=== PATIENT | female | born 1965 | race Caucasian/White ===

== ENCOUNTER 2017-11-02 11:44 | Emergency (ER) | payer OTHER ==
[~2017-11-02] VITALS: Ht 165.1 cm; Wt 111.4 kg
[~2017-11-02 11:44] MED LIST: ALBUAER2 INH; ALPR1TAB3 PO; BUPR200T2 PO; CHOL100010 PO; CLB/200 PO; CYAN500T13 PO; FLUO20CA34 PO; GABA-113 PO; HYDR25TA4 PO; LEVO75TA25 PO; MORP1TAB12 PO; MULTTAB58 PO; ONDA4TAB65 PO; OXYC-164 PO
[2017-11-02 11:48] VITALS: TEMP 36.9; Ht 165.1 cm; Wt 111.4 kg
--- NOTE | 2017-11-02 12:36 | DIAGNOSTIC IMAGING REPORT ---
ADDENDUM Lucent and sclerotic focus within the distal tibia which measures 2.2 cm. This likely represents a bone infarct. Electronically signed by: Delfino Lloyd M.D. 11/02/2017 1:35 PM Dictated Date/Time: 11/02/2017 1:35 PM ORIGINAL REPORT L FOOT MIN 3 VIEWS ROUTINE, L TOE(S) MIN 2 VIEWS CLINICAL HISTORY: pain in the foot and toes after kicking pogo stick COMPARISON STUDY: None. FINDINGS: Small plantar heel spur. Soft tissue swelling within the left fifth toe. No fracture or dislocation. The Lisfranc joint is intact. IMPRESSION: Soft tissue swelling within the left fifth toe. No fractures within the left fifth toe or left foot. Electronically signed by: Delfino Lloyd M.D. 11/02/2017 12:34 PM Dictated Date/Time: 11/02/2017 12:32 PM
--- NOTE | 2017-11-02 13:14 | EMERGENCY ROOM VISIT NOTE ---
ED Visit Note First contact with patient: 12:16 CHIEF COMPLAINT: Left foot injury 2 days ago HPI: Patient is a 52 year-old white female who presents emergency department for evaluation of lateral left foot pain. She was walking barefoot 2 days ago when she accidentally kicked one of her son's toys. She complains of pain primarily in the left fifth toe that radiates towards her. She did have some bleeding from the web space which has been controlled. She iced and elevated the foot. She rates her pain a 7/10. No ankle pain. REVIEW OF SYSTEMS: Review of systems as per HPI. All other systems reviewed were negative. At least 6 systems reviewed. PMH: Electronic medical records are reviewed and summarized as above/below. See Problem List. SOCIAL HISTORY: Patient lives at home with her family. PHYSICAL EXAM: Vital Signs: Reviewed Nurse's notes. GENERAL: Well-appearing 52- year-old white female who is awake and alert and in no acute distress. MUSCULOSKELETAL: Examination of the left foot show a circular metal soft tissue swelling and ecchymosis of the fifth toe, extending into the dorsum of the foot slightly. There is no obvious deformity. She has a small skin tear in the web space of the left fourth and fifth toes, but no repairable laceration and no active bleeding. She is slightly tender into the fourth and fifth metatarsal region. EMERGENCY DEPARTMENT COURSE: X-rays of the left foot were obtained and were negative for acute fracture. Patient was placed in a postoperative shoe. Supportive care measures were discussed. Differential diagnosis included fracture, contusion, dislocation, laceration, among others. Medication reconciliation: I attest that I have personally reviewed the patient' s current medication list. Blood pressure screening : Patient was found to have normal blood pressure on screening and does not require follow-up. L FOOT MIN 3 VIEWS ROUTINE, L TOE(S) MIN 2 VIEWS CLINICAL HISTORY: pain in the foot and toes after kicking pogo stick COMPARISON STUDY: None. FINDINGS: Small plantar heel spur. Soft tissue swelling within the left fifth toe. No fracture or dislocation. The Lisfranc joint is intact. IMPRESSION: Soft tissue swelling within the left fifth toe. No fractures within the left fifth toe or left foot. Problem List Medical Problems: (1) COPD (chronic obstructive pulmonary disease) Status: Chronic (2) Hypertension Status: Chronic (3) Hypothyroidism Status: Chronic (4) No significant medical problems Status: Chronic (5) No significant past surgical history Status: Chronic (6) Pain, dental Status: Resolved Current/Historical Medications Scheduled Bupropion Hcl (Wellbutrin Sr), 200 MG PO BID Celecoxib (CeleBREX), 200 MG PO DAILY Cholecalciferol (Vitamin D), 1,000 INTER.UNIT PO DAILY Fluoxetine Hcl (Prozac), 40 MG PO DAILY Gabapentin (Neurontin), 600 MG PO HS Hydrochlorothiazide (Hctz), 25 MG PO DAILY Levothyroxine Sodium (Levoxyl), 75 MCG PO DAILY Morphine Sulfate (Morphine Sulfate Er), 30 MG PO TID Multiple Vitamin (Multivitamin), 1 TAB PO DAILY Scheduled PRN Albuterol (Ventolin Hfa), 2 PUFFS INH Q4H PRN for Wheezing Alprazolam (Xanax), 1 MG PO TID PRN for Anxiety Ondansetron Hcl (Zofran), 4 MG PO Q6H PRN for Nausea Oxycodone Hcl (Oxycodone Hcl), 10 MG PO TID PRN for Pain Allergies Coded Allergies: Cat Dander (Verified Allergy, Unknown, ITCHY, SWELLING, 11/02/17) Dog Dander (Verified Allergy, Unknown, ITCHY, SWELLING, 11/02/17) Dust (Verified Allergy, Unknown, SWELLING, ITCHY, 11/02/17) Molds & Smuts (Verified Allergy, Unknown, ITCHY, SWELLING, 11/02/17) NO KNOWN DRUG ALLERGIES (Verified Allergy, Unknown, , 11/02/17) Vital Signs Date Time Temp Pulse Resp B/P (MAP) Pulse Ox O2 Delivery O2 Flow Rate FiO2 11/02/17 13:25 74 18 131/79 97 11/02/17 11:48 36.9 76 20 136/84 96 Room Air Departure Information Impression Primary Impression: Contusion of left foot Referrals No Doctor, Assigned (PCP) Patient Instructions My [facility] Additional Instructions Ibuprofen(Motrin, Advil) may be used for fever or pain. Use 600mg every six hours as needed. Take with food. Avoid using more than 2400mg in a 24 hour period. Do not use 2400mg per day for more than three consecutive days without physician direction. Prolonged inappropriate use can lead to stomach upset or ulcers. This medication can be taken if you need to drive, work, or perform activities which may be dangerous when taking narcotic pain medication. (AND/OR) Acetaminophen(Tylenol) may be used for fever or pain. Use 1000mg every six hours as needed. Avoid using more than 3000mg in a 24 hour period. This medication can be taken if you need to drive, work, or perform activities which may be dangerous when taking narcotic pain medication. Ice compresses for 20 minutes at a time four times daily for 2-3 days. Use the postoperative shoe as instructed. Rest and elevate your injury. May resume normal activity as your symptoms allow. Continue current medications. Return to the ER immediately for any numbness, tingling, severe pain, extreme swelling in the extremity or as needed. Followup with your family doctor or orthopedic surgery if no improvement in 5-7 days.
[2017-11-02 13:25] VITALS: BP 131/79; PULSE 74; O2SAT 97
== END 2017-11-02 13:25 | disposition home or self-care (01) ==
LOC: C.EDB 11:45 → C.EDD 13:25
DX: S90.32XA Contusion of left foot, initial encounter (principal); W22.8XXA Striking against or struck by other objects, initial encounter; S91.312A Laceration without foreign body, left foot, initial encounter; J44.9 Chronic obstructive pulmonary disease, unspecified; I10 Essential (primary) hypertension; E03.9 Hypothyroidism, unspecified

== ENCOUNTER 2017-12-31 08:33 | Observation (INO) | payer OTHER ==
[~2017-12-31] VITALS: Ht 165.1 cm; Wt 101.0 kg
[~2017-12-31 08:33] MED LIST changes: -ALPR1TAB3 PO; -BUPR200T2 PO; -CLB/200 PO; -CYAN500T13 PO; -FLUO20CA34 PO; -GABA-113 PO; -HYDR25TA4 PO; -MULTTAB58 PO; -ONDA4TAB65 PO
[2017-12-31] MEDS ORDERED: ASPIRIN 81 MG CHEW PO STA (08:56)
[2017-12-31] MEDS ORDERED: SODIUM CHLORIDE 0.9% 1000ML 1,000 ML IV STA (08:56)
[2017-12-31] MEDS ORDERED: SYN75 PO (09:04)
[2017-12-31] MEDS ORDERED: CHOL100010 PO (09:04)
[2017-12-31] MEDS ORDERED: VNTHFA/IN INH (09:04)
[2017-12-31] MEDS ORDERED: BLAC540C3 (09:04)
[2017-12-31] MEDS ORDERED: MORP-86 PO (09:04)
[2017-12-31] MEDS ORDERED: OXYC15TA89 PO (09:04)
[2017-12-31 09:07] LABS: BASO % 0.5 %; BASO ABS # 0.03 K/uL (0-0.2); EOS % 1.6 %; EOS ABS # 0.09 K/uL (0-0.5); HEMATOCRIT 41.9 % (37-47); HEMOGLOBIN 13.8 g/dL (12.0-16.0); LYMPH ABS # 1.68 K/uL (1.2-3.4); MEAN CELL VOLUME 90.3 fL (80-100); MEAN CORPUSCULAR HEMOGLOBIN 29.7 pg (25-34); MEAN CORPUSCULAR HGB CONC 32.9 g/dl (32-36); MEAN PLATELET VOLUME 8.9 fL (7.4-10.4); MONO % 9.3 %; MONO ABS # 0.54 K/uL (0.11-0.59); NEUT % 59.6 %; NEUT ABS # 3.45 K/uL (1.4-6.5); PLATELET COUNT 194 K/uL (130-400); RED CELL DISTRIBUTION WIDTH CV 13.4 % (11.5-14.5); RED CELL DISTRIBUTION WIDTH SD 44.1 fL (36.4-46.3); WHITE BLOOD COUNT 5.79 K/uL (4.8-10.8)
[2017-12-31 09:17] LABS: ALBUMIN 3.8 gm/dl (3.4-5.0); CALCIUM 9.3 mg/dl (8.5-10.1); CREATININE 0.93 mg/dl (0.60-1.20); POTASSIUM 3.8 mmol/L (3.5-5.1)
[2017-12-31 09:20] LABS: TOTAL PROTEIN 7.1 gm/dl (6.4-8.2)
[2017-12-31 09:25] LABS: INR 0.9 (0.9-1.1); PTT PATIENT 25.8 SECONDS (21.0-31.0)
--- NOTE | 2017-12-31 09:32 | DIAGNOSTIC IMAGING REPORT ---
SINGLE VIEW CHEST CLINICAL HISTORY: Atypical chest pain. FINDINGS: An AP, portable, upright chest radiograph is compared to study dated 03/21/2015 and correlated with chest CT dated 06/04/2008. The examination is degraded by portable technique, large body habitus, and patient rotation. The heart is top normal for projection. The pulmonary vasculature is noncongested. There is bibasilar atelectasis. No airspace consolidation or large pleural effusion is identified. No pneumothorax is seen. The skeletal structures are osteopenic. The bony thorax is grossly intact. IMPRESSION: No acute cardiopulmonary abnormality. Electronically signed by: Yogi Treadwell M.D. 12/31/2017 9:31 AM Dictated Date/Time: 12/31/2017 9:30 AM
[2017-12-31] MEDS: NITROGLYCERIN 0.4 MG SL PER TAB CHARGE SL PRN ×2 (09:33→13:05)
[2017-12-31 13:18] VITALS: O2SAT 97; Ht 165.1 cm; Wt 101.0 kg
[2017-12-31] MEDS ORDERED: ACETAMINOPHEN 500 MG TAB PO STA (13:26)
[2017-12-31] MEDS ORDERED: ACETAMINOPHEN 500 MG TAB PO ONE (13:29)
[2017-12-31] MEDS ORDERED: ONDANSETRON INJ 2 MG/ML 2 ML VIAL IV PRN (13:30)
[2017-12-31] MEDS ORDERED: ALPRAZOLAM 0.5 MG TAB PO PRN (13:30)
[2017-12-31] MEDS ORDERED: NITROGLYCERIN 0.4 MG SL PER TAB CHARGE SL PRN (13:30)
[2017-12-31] MEDS ORDERED: OXYCODONE HCL 15 MG TABCR (OXYCONTIN) PO PRN (13:30)
--- NOTE | 2017-12-31 13:39 | History and Physical ---
History & Physical Date & Time of Service: Dec 31, 2017 at 13:26 Chief Complaint: Chest Pain Primary Care Physician: Judith Becker PA-C History of Present Illness Source: patient She is a 52-year-old white female with significant hypothyroidism chronic back pain esophageal reflux apparently woke up from sleep at around 5 AM with chest pain. The pain was there for about half an hour and it was not associated with any other significant symptoms. She tried to take some Tums with some improvement and later on he decided to come to the emergency room on the way to the emergency room she got another attack of chest pain, this time left side and also to the left shoulder no shortness of breath associated with it. She also had to have another episode of pain at the emergency room that was controlled with sublingual nitro. She also recently finished a course of prednisone for possible exacerbation of asthma. Her initial blood work including troponin and EKG were unremarkable and she was about to go home. She suffered another attack of chest pain and during that time she was advised to stay in the hospital. Cardiology consultation was asked for for a probable stress test down the line. 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 (14) Sciatica of left side Social History Smoking Status: Former Smoker Marital Status: single Occupational Status: employed Immunizations History of Tetanus Vaccine?: Yes History of Pneumococcal: 2002 History of Hepatitis B Vaccine: Unknown Allergies Coded Allergies: Cat Dander (Verified Allergy, Unknown, ITCHY, SWELLING, 12/31/17) Dog Dander (Verified Allergy, Unknown, ITCHY, SWELLING, 12/31/17) Dust (Verified Allergy, Unknown, SWELLING, ITCHY, 12/31/17) Molds & Smuts (Verified Allergy, Unknown, ITCHY, SWELLING, 12/31/17) NO KNOWN DRUG ALLERGIES (Verified Allergy, Unknown, , 11/02/17) Home Medications Scheduled Albuterol Hfa (Ventolin Hfa), 2-4 PUFFS INH Q6H Bupropion Hcl (Wellbutrin Sr), 200 MG PO BID Celecoxib (CeleBREX), 200 MG PO DAILY Cholecalciferol (Vitamin D), 1,000 UNITS PO DAILY Fluoxetine Hcl (Prozac), 40 MG PO DAILY Gabapentin (Neurontin), 600 MG PO HS Hydrochlorothiazide (Hctz), 25 MG PO DAILY Levothyroxine Sodium (Synthroid), 75 MCG PO DAILY Morphine Sulfate (Morphine Sulfate Cr), 15 MG PO BID Multiple Vitamin (Multivitamin), 1 TAB PO DAILY Scheduled PRN Alprazolam (Xanax), 1 MG PO TID PRN for Anxiety Ondansetron Hcl (Zofran), 4 MG PO Q6H PRN for Nausea Oxycodone Hcl (Oxycontin), 15 MG PO QID PRN for Pain Miscellaneous Medications Black Cohosh (Cimicifuga Racem (Black Cohosh) Review of Systems Cardiovascular: + chest pain Abdomen: + nausea Physical Exam Vital Signs Date Time Temp Pulse Resp B/P (MAP) Pulse Ox O2 Delivery O2 Flow Rate FiO2 12/31/17 13:20 75 12/31/17 13:18 97 Room Air 12/31/17 13:08 86 18 103/77 97 Room Air 12/31/17 12:45 74 18 124/82 98 Room Air 12/31/17 11:33 82 18 115/64 97 Room Air 12/31/17 11:11 70 18 134/67 98 Room Air 12/31/17 09:35 84 18 117/70 95 Room Air 12/31/17 08:43 92 12/31/17 08:42 98 Room Air 12/31/17 08:34 37.0 89 17 142/83 96 Room Air General Appearance: + mild distress Head: normocephalic Eyes: normal inspection, PERRL ENT: normal ENT inspection Neck: supple Respiratory/Chest: chest non-tender, lungs clear, no respiratory distress, + wheezing (Minimal) Cardiovascular: regular rate, rhythm Abdomen/GI: normal bowel sounds Back: normal inspection Extremities/Musculoskelatal: + pedal edema (Chronic) Neurologic/Psych: no motor/sensory deficits, alert, normal mood/affect Skin: normal color Lymphatic: no adenopathy Diagnostics Laboratory Results Results Past 24 Hours Test 12/31/17 08:44 12/31/17 10:41 12/31/17 11:28 Range/Units White Blood Count 5.79 4.8-10.8 K/uL Red Blood Count 4.64 4.2-5.4 M/uL Hemoglobin 13.8 12.0-16.0 g/dL Hematocrit 41.9 37-47 % Mean Corpuscular Volume 90.3 80-100 fL Mean Corpuscular Hemoglobin 29.7 25-34 pg Mean Corpuscular Hemoglobin Concent 32.9 32-36 g/dl Platelet Count 194 130-400 K/uL Mean Platelet Volume 8.9 7.4-10.4 fL Neutrophils (%) (Auto) 59.6 % Lymphocytes (%) (Auto) 29.0 % Monocytes (%) (Auto) 9.3 % Eosinophils (%) (Auto) 1.6 % Basophils (%) (Auto) 0.5 % Neutrophils # (Auto) 3.45 1.4-6.5 K/uL Lymphocytes # (Auto) 1.68 1.2-3.4 K/uL Monocytes # (Auto) 0.54 0.11-0.59 K/uL Eosinophils # (Auto) 0.09 0-0.5 K/uL Basophils # (Auto) 0.03 0-0.2 K/uL RDW Standard Deviation 44.1 36.4-46.3 fL RDW Coefficient of Variation 13.4 11.5-14.5 % Immature Granulocyte % (Auto) 0.0 % Immature Granulocyte # (Auto) 0.00 0.00-0.02 K/uL Prothrombin Time 9.6 9.0-12.0 SECONDS Prothromb Time International Ratio 0.9 0.9-1.1 Activated Partial Thromboplast Time 25.8 21.0-31.0 SECONDS Partial Thromboplastin Ratio 1.0 Sodium Level 139 136-145 mmol/L Potassium Level 3.8 3.5-5.1 mmol/L Chloride Level 103 98-107 mmol/L Carbon Dioxide Level 30 21-32 mmol/L Anion Gap 6.0 3-11 mmol/L Blood Urea Nitrogen 20 7-18 mg/dl Creatinine 0.93 0.60-1.20 mg/dl Est Creatinine Clear Calc Drug Dose 88.3 ml/min Estimated GFR () 81.9 Estimated GFR (Non- 70.7 BUN/Creatinine Ratio 21.0 10-20 Random Glucose 80 70-99 mg/dl Calcium Level 9.3 8.5-10.1 mg/dl Total Bilirubin 0.4 0.2-1 mg/dl Direct Bilirubin 0.1 0-0.2 mg/dl Aspartate Amino Transf (AST/SGOT) 16 15-37 U/L Alanine Aminotransferase (ALT/SGPT) 20 12-78 U/L Alkaline Phosphatase 112 45-117 U/L Total Protein 7.1 6.4-8.2 gm/dl Albumin 3.8 3.4-5.0 gm/dl Lipase 86 73-393 U/L Bedside Troponin I < 0.030 < 0.030 0-0.045 ng/ml CXR normal Normal EKG Impression Assessment and Plan Chest pain Recurrent episodes since 5 AM Pain related to ER with them sublingual nitro Initial EKG and troponin negative Patient will be admitted to telemetry unit Dobutamine stress echo tomorrow morning Asthma Seems to be well controlled Continue her current home medications Hypothyroidism Continue with replacement Chronic back pain Has been in the care of pain therapist We will continue her usual home medications Obstructive sleep apnea No acute issue with this Esophageal reflux continue PPI DVT prophylaxis with heparin CODE STATUS-she will be full code In my clinical assessment the beneficiary meets criteria as per CMS for 2 minutes in the hospital Advanced Directives Existing Living Will: No Existing Power of Lumber Scaler: No Resuscitation Status VTE Prophylaxis Will order VTE Prophylaxis: Yes
[2017-12-31] MEDS ORDERED: ALPR1TAB3 PO (14:25)
[2017-12-31 14:40] VITALS: BP 144/84; PULSE 71; TEMP 37.1; O2SAT 97
[2017-12-31] MEDS ORDERED: IV FLUIDS COMPLETED PRN (15:30)
[2017-12-31] MEDS: NSS + 20MEQ KCL 1000ML 1,000 ML IV SCH (15:35)
[2017-12-31 16:00] VITALS: O2SAT 97
[2017-12-31] MEDS: OXYCODONE HCL IR 5 MG TAB (IMMEDIATE RELEASE) PO PRN ×2 (16:06→20:40)
[2017-12-31] MEDS: ALBUTEROL HFA 8 GM INHALER INH SCH ×2 (17:08→20:44)
[2017-12-31] MEDS: HEPARIN SOD 5000 UNIT/0.5 ML CARP SQ SCH ×2 (17:09→20:43)
[2017-12-31] MEDS ORDERED: MULTTAB58 PO (17:12)
[2017-12-31] MEDS ORDERED: BUPR200T2 PO (17:12)
[2017-12-31] MEDS ORDERED: FLUO20CA34 PO (17:12)
[2017-12-31] MEDS ORDERED: CLB/200 PO (17:12)
[2017-12-31] MEDS ORDERED: MoRPHine SULFATE CR 15 MG TAB (MS CONTIN) PO ONE (17:26)
--- NOTE | 2017-12-31 17:41 | EMERGENCY ROOM VISIT NOTE ---
ED Visit Note First contact with patient: 08:40 Chief Complaint: Chest pain. History of Present Illness: Ms. Green is a 52 year-old white female who ambulates into the ED complaining of left-sided chest pain. Historically patient reports a significant history of COPD and hypertension. She denies any personal heart disease. She does report that her maternal grandfather from heart attack at age 90, but her parents and siblings have no heart disease. Patient reports last evening prior to bed she reports she had an episode of diaphoresis and nausea without vomiting that lasted a short time and then self resolved. She was able to sleep all night. This morning approximately 4 hours ago she was awoken from sleep with an acute onset of left-sided chest pain. Since that time her pain has been constant. She describes her discomfort as an achy and pressure-like sensation. On its initial presentation she rates her discomfort 8/10 and currently it is 4/10. She reports she took some Tums and had mild relief of her discomfort. Associated with her discomfort she reports she was feeling short of breath; she reports using an inhaler and had mild relief of her shortness of breath. She has not identified any aggravating factors related to the her discomfort. She denies fevers, chills, sweats, skin eruptions, skin color changes, previous similar discomforts, recent upper respiratory tract symptoms, cough, wheezing, hemoptysis, palpitations, orthopnea, dependent edema, previous clots, claudication, cramping, return of nausea, vomiting, back/flank pain. Review of Systems: As noted above in history of present illness. All body systems were reviewed and found to be negative as noted above. Past Medical History: As previously noted, hypothyroidism Current Medications: Medications Dose Route/Sig Max Daily Dose Days Date Category Black Cohosh (Black Cohosh (Cimicifuga Racem) 540 Mg Cap 12/31/17 Reported Oxycontin (Oxycodone Hcl) 15 Mg Tab 15 Mg PO QID PRN 12/31/17 Reported Morphine Sulfate Cr (Morphine Sulfate) 15 Mg Tab 15 Mg PO BID 12/31/17 Reported Synthroid (Levothyroxine Sodium) 75 Mcg Tab 75 Mcg PO DAILY 12/31/17 Reported Vitamin D (Cholecalciferol) 1,000 Unit Tab 1,000 Units PO DAILY 12/31/17 Reported Ventolin Hfa (Albuterol) 200 Puffs/57943 Mcg Aers 2-4 Puffs INH Q6H 12/31/17 Reported Neurontin (Gabapentin) 300 Mg Cap 600 Mg PO HS 10/05/15 Reported Zofran (Ondansetron Hcl) 4 Mg Tab 4 Mg PO Q6H PRN 10/05/15 Reported Hctz (Hydrochlorothiazide) 25 Mg Tab 25 Mg PO DAILY 10/05/15 Reported Xanax (Alprazolam) 1 Mg Tab 1 Mg PO TID PRN 07/25/14 Reported Multivitamin (Multiple Vitamin) 1 Tab Tab 1 Tab PO DAILY 02/22/12 Reported Wellbutrin Sr (Bupropion Hcl) 200 Mg Tab 200 Mg PO BID 02/22/12 Reported CeleBREX (Celecoxib) 200 Mg Cap 200 Mg PO DAILY 02/22/12 Reported Prozac (Fluoxetine Hcl) 20 Mg Cap 40 Mg PO DAILY 02/22/12 Reported Allergies to Medications: Patient denies. Social History: Patient is currently employed; she feels safe in her home environment; she admits to being a former smoker. Physical Examination: Vital Signs: Date Time Temp Pulse Resp B/P (MAP) Pulse Ox O2 Delivery O2 Flow Rate FiO2 12/31/17 13:20 75 12/31/17 13:18 97 Room Air 12/31/17 13:08 86 18 103/77 97 Room Air 12/31/17 13:07 103/77 12/31/17 13:01 133/92 12/31/17 12:45 74 18 124/82 98 Room Air 12/31/17 12:33 73 21 97 12/31/17 12:31 124/82 12/31/17 12:01 138/93 12/31/17 11:33 68 10 99 12/31/17 11:33 82 18 115/64 97 Room Air 12/31/17 11:30 115/64 12/31/17 11:11 70 18 134/67 98 Room Air 12/31/17 11:11 134/67 12/31/17 09:35 84 18 117/70 95 Room Air 12/31/17 09:34 117/70 12/31/17 09:33 79 22 94 12/31/17 08:43 92 12/31/17 08:42 98 Room Air 12/31/17 08:34 37.0 89 17 142/83 96 Room Air GENERAL: 52-year-old female in mild distress due to pain, nontoxic-appearing, afebrile and hemodynamically stable. NEUROLOGICAL: Awake, alert and oriented to person, place and time. Answering questions appropriately and following commands. Normal gait. Good hand eye coordination. SKIN: Warm, dry and pink. No soft tissue eruptions or trauma noted. HEENT: Atraumatic and normocephalic. PERRLA. Sclera white and conjunctiva pink. Oral cavity moist and pink. Pharynx is nonerythematous or edematous. Speech normal. No lymphadenopathy. Trachea midline. No jugular venous distention. No carotid bruits. BACK: No tenderness over the bony spine. No CVA tenderness. THORAX: Lungs sounds are clear to auscultation and equal bilaterally with symmetrical chest wall. No wheezing, rales or rhonchi. No crepitus, tenderness , subcutaneous air or deformities noted. HEART: Regular rate and rhythm. No gallops, rubs or murmurs are appreciated. No lifts, heaves or thrills. PMI is not displaced. ABDOMEN: Obese, soft and nontender. Positive bowel sounds in all quadrants. No guarding, rigidity or organomegaly. EXTREMITIES: Moves all extremities well on command and with purpose. All distal neurovascular statuses are intact and equal bilaterally. Mild dependent edema. No calf tenderness or cords. ED Course: Patient is assessed as noted above. Laboratory Testing: Test 12/31/17 08:44 12/31/17 10:41 12/31/17 11:28 Range/Units White Blood Count 5.79 4.8-10.8 K/uL Red Blood Count 4.64 4.2-5.4 M/uL Hemoglobin 13.8 12.0-16.0 g/dL Hematocrit 41.9 37-47 % Mean Corpuscular Volume 90.3 80-100 fL Mean Corpuscular Hemoglobin 29.7 25-34 pg Mean Corpuscular Hemoglobin Concent 32.9 32-36 g/dl Platelet Count 194 130-400 K/uL Mean Platelet Volume 8.9 7.4-10.4 fL Neutrophils (%) (Auto) 59.6 % Lymphocytes (%) (Auto) 29.0 % Monocytes (%) (Auto) 9.3 % Eosinophils (%) (Auto) 1.6 % Basophils (%) (Auto) 0.5 % Neutrophils # (Auto) 3.45 1.4-6.5 K/uL Lymphocytes # (Auto) 1.68 1.2-3.4 K/uL Monocytes # (Auto) 0.54 0.11-0.59 K/uL Eosinophils # (Auto) 0.09 0-0.5 K/uL Basophils # (Auto) 0.03 0-0.2 K/uL RDW Standard Deviation 44.1 36.4-46.3 fL RDW Coefficient of Variation 13.4 11.5-14.5 % Immature Granulocyte % (Auto) 0.0 % Immature Granulocyte # (Auto) 0.00 0.00-0.02 K/uL Prothrombin Time 9.6 9.0-12.0 SECONDS Prothromb Time International Ratio 0.9 0.9-1.1 Activated Partial Thromboplast Time 25.8 21.0-31.0 SECONDS Partial Thromboplastin Ratio 1.0 Sodium Level 139 136-145 mmol/L Potassium Level 3.8 3.5-5.1 mmol/L Chloride Level 103 98-107 mmol/L Carbon Dioxide Level 30 21-32 mmol/L Anion Gap 6.0 3-11 mmol/L Blood Urea Nitrogen 20 7-18 mg/dl Creatinine 0.93 0.60-1.20 mg/dl Est Creatinine Clear Calc Drug Dose 88.3 ml/min Estimated GFR () 81.9 Estimated GFR (Non- 70.7 BUN/Creatinine Ratio 21.0 10-20 Random Glucose 80 70-99 mg/dl Calcium Level 9.3 8.5-10.1 mg/dl Total Bilirubin 0.4 0.2-1 mg/dl Direct Bilirubin 0.1 0-0.2 mg/dl Aspartate Amino Transf (AST/SGOT) 16 15-37 U/L Alanine Aminotransferase (ALT/SGPT) 20 12-78 U/L Alkaline Phosphatase 112 45-117 U/L Total Protein 7.1 6.4-8.2 gm/dl Albumin 3.8 3.4-5.0 gm/dl Lipase 86 73-393 U/L Hepatitis C Antibody Screen PRELIM POS NEG Bedside Troponin I < 0.030 < 0.030 0-0.045 ng/ml Chest X-Rays: Were read by myself and the radiologist showing no acute infiltrates, effusions or pneumothorax. Normal heart silhouette and bony anatomy. EKG: #1 0841 was read by myself and shows normal sinus rhythm with a ventricular rate of 81 bpm. Normal axis, intervals and complexes. No acute ST changes indicating ischemia, injury or infarction. Compared to previous and no acute changes were noted. EKG: #2 1115 was read by myself and shows normal sinus rhythm with a ventricular rate of 69 bpm. Normal axis, intervals and complexes. No acute ST changes indicating ischemia, injury or infarction. Compared to previous and no acute changes were noted. Patient was hydrated with normal saline and initially she was given 324 mg of aspirin and 1 0.4 mg sublingual nitroglycerin tablet; on reassessment this resolved her discomfort. Patient was reassessed multiple times during her stay in the emergency department. Second troponin and EKG were normal. My plan was to discharge the patient to home but when I reassessed her she reports she had return of her chest discomfort. This was similar to previous. She was given a second sublingual nitroglycerin without relief of her discomfort. Patient's case was reviewed with Dr. Brandt; we agreed on diagnostic approach , treatment, disposition and plan. Patient's case was consulted with Dr. Durant, [facility] cardiology; he recommended admission and possible stress testing. Patient's case was consulted with case management and [facility]. Patient was educated about today's findings. Clinical Impression: Acute left-sided chest pain. Decision-Making: Initially my differential diagnosis I considered acute coronary syndrome, thoracic aneurysm, pneumothorax, pneumonia, pulmonary embolism, musculoskeletal disorder and other causes. Disposition and Plan: [facility] please see their notes and orders for final disposition and plan.
[2017-12-31 18:53] VITALS: BP 108/74; PULSE 74; TEMP 36.8; O2SAT 93
[2017-12-31] MEDS ORDERED: ONDA4TAB65 PO (18:58)
[2017-12-31] MEDS ORDERED: HYDR25TA4 PO (18:58)
[2017-12-31] MEDS ORDERED: GABA-113 PO (18:58)
[2017-12-31 20:00] VITALS: O2SAT 97
[2017-12-31] MEDS: BuPROPion SR 100 MG TABCR PO SCH (20:39)
[2017-12-31] MEDS: GABAPENTIN 600 MG TAB PO SCH (20:39)
[2017-12-31] MEDS: ALPRAZOLAM 0.5 MG TAB PO SCH (20:40)
[2017-12-31] MEDS ORDERED: MoRPHine SULFATE CR 15 MG TAB (MS CONTIN) PO SCH (21:00)
[2017-12-31 23:42] VITALS: BP 113/75; PULSE 82; TEMP 36.7; O2SAT 94
[2018-01-01] VITALS (11 sets, daily range): BP systolic 92–117; BP diastolic 60–80; PULSE 66–87; TEMP 36.4–36.8; O2SAT 95–98
[2018-01-01] MEDS: NSS + 20MEQ KCL 1000ML 1,000 ML IV SCH ×2 (04:42→17:54)
[2018-01-01] MEDS: HEPARIN SOD 5000 UNIT/0.5 ML CARP SQ SCH ×3 (05:55→21:46)
[2018-01-01] MEDS: LEVOTHYROXINE 75 MCG TAB PO SCH (05:57)
[2018-01-01] MEDS: ALBUTEROL HFA 8 GM INHALER INH SCH ×3 (05:58→17:55)
[2018-01-01] MEDS: MULTIVITAMIN TAB PO SCH (07:50)
[2018-01-01] MEDS: CHOLECALCIFEROL 1000 INTER.UNIT TAB PO SCH (07:51)
[2018-01-01] MEDS: BuPROPion SR 100 MG TABCR PO SCH ×2 (07:51→20:30)
[2018-01-01] MEDS: FLUOXETINE HCL 20 MG CAP PO SCH (07:51)
[2018-01-01 08:21] LABS: CHOLESTEROL 197 mg/dl (0-200); LDL CHOLESTEROL CALCULATED 108 mg/dl
[2018-01-01] MEDS: ALPRAZOLAM 0.5 MG TAB PO SCH ×3 (09:00→20:25)
[2018-01-01] MEDS: MoRPHine SULFATE CR 15 MG TAB (MS CONTIN) PO SCH ×2 (09:02→20:30)
[2018-01-01] MEDS: OXYCODONE HCL IR 5 MG TAB (IMMEDIATE RELEASE) PO PRN ×4 (09:05→21:47)
[2018-01-01] MEDS ORDERED: METOPROLOL TARTRATE 1 MG/ML VIAL ONE ×3 (09:48→10:19)
[2018-01-01] MEDS ORDERED: DOBUTamine HCL 12.5 MG/ML 20 ML VIAL ONE (09:48)
[2018-01-01] MEDS ORDERED: ATROPINE SULFATE 0.1 MG/ML 5ML SYR ONE ×2 (09:49→09:50)
--- NOTE | 2018-01-01 11:10 | DOBUTAMINE ECHO ---
*NOTICE TO RECEIVING [employer] [employer] This information is strictly Confidential and protected under [place] law. [place] law prohibits you from making any further disclosure of this information unless further disclosure is expressly permitted by the written consent of the person to whom it pertains or is authorized by law. A general authorization for the release of medical or other information is not sufficient for this purpose. Hospital accepts no responsibility if the information is made available to any other person, INCLUDING THE PATIENT. Interpretation Summary * Name: GERRY SERRANO Study Date: 01/01/2018 08:35 AM BP: 132/66 mmHg * Patient Location: C.2T\S\S235\S\1 HR: 68 * : 1965 (M/d/yyyy) Gender: Female Height: 65 in * Age: 52 yrs Ethnicity: CA Weight: 247 lb * Ordering Physician: Kaye Galvez * Referring Physician: Self, Referred * Performed By: Summer Ny RDCS * * Reason For Study: CHEST PAIN * BSA: 2.2 m2 * STRESS STUDY: Normal pharmacologic stress echocardiogram. No echocardiographic or ECG evidence of myocardial ischemia having achieved heart rate adequate for diagnostic purposes. * -- Conclusions -- * The left ventricle is normal in size. * Left ventricular systolic function is normal. * Ejection Fraction = 60-65%. Procedure Details * DOBUTAMINE ECHO, CPT#96903 Left Ventricle * The left ventricle is normal in size. * There is normal left ventricular wall thickness. * Ejection Fraction = 60-65%. * Left ventricular systolic function is normal. Right Ventricle * The right ventricle is normal size. * The right ventricular systolic function is normal. Atria * The left atrial size is normal. * Right atrial size is normal. * No ASD detected; PFO is not assessed. Mitral Valve * The mitral valve is normal in structure and function. Tricuspid Valve * The tricuspid valve is not well visualized, but is grossly normal. * There is trace tricuspid regurgitation. Aortic Valve * The aortic valve is normal in structure and function. Pulmonic Valve * The pulmonic valve is not well visualized. Great Vessels * The aortic root and proximal ascending aorta are normal sized. Pericardium * There is no pericardial effusion. Stress Parameters * The stress portion of this study was personally supervised by the undersigned interpreting physician. * Rest heart rate was '68' BPM. * Rest blood pressure was '132/66' * Maximum heart rate achieved was 155 bpm. * Maximum heart rate was 92 % of maximum age-predicted heart rate. * Maximum blood pressure was '219/52' * Maximum Dobutamine infusion rate was '50' mcg/kg/min. * A total of .75 mg of intravenous Atropine was used to supplement Dobutamine for heart rate response. * Dobutamine infusion was terminated due to achieving target heart rate * A total of 10 mg of IV Metoprolol was administered to reverse Dobutamine-induced tachycardia. MMode 2D Measurements and Calculations IVSd 1.1 cm IVSs 1.5 cm LVIDd 4.7 cm LVIDs 3.2 cm LVPWd 0.75 cm LVPWs 1.7 cm IVS/LVPW 1.4 FS 32.2 % EDV(Teich) 101.1 ml ESV(Teich) 40.0 ml EF(Teich) 60.4 % EDV(cubed) 102.2 ml ESV(cubed) 31.8 ml EF(cubed) 68.8 % % IVS thick 43.2 % % LVPW thick 123.6 % LV mass(C)d 143.4 grams LV mass(C)dI 66.3 grams/m\S\2 LV mass(C)s 189.6 grams LV mass(C)sI 87.6 grams/m\S\2 SV(Teich) 61.1 ml SI(Teich) 28.2 ml/m\S\2 SV(cubed) 70.3 ml SI(cubed) 32.5 ml/m\S\2 Ao root diam 2.8 cm Ao root area 6.2 cm\S\2 LA dimension 3.4 cm LA/Ao 1.2 LVAd ap4 33.8 cm\S\2 LVLd ap4 9.1 cm EDV(MOD-sp4) 104.5 ml EDV(sp4-el) 106.9 ml LVAs ap4 19.2 cm\S\2 LVLs ap4 7.5 cm ESV(MOD-sp4) 41.3 ml ESV(sp4-el) 42.1 ml EF(MOD-sp4) 60.4 % EF(sp4-el) 60.6 % LVAd ap2 33.9 cm\S\2 LVLd ap2 8.9 cm EDV(MOD-sp2) 104.1 ml EDV(sp2-el) 108.9 ml LVAs ap2 18.1 cm\S\2 LVLs ap2 7.4 cm ESV(MOD-sp2) 36.6 ml ESV(sp2-el) 37.5 ml EF(MOD-sp2) 64.9 % EF(sp2-el) 65.5 % LVLd %diff -1.31 % EDV(MOD-bp) 104.7 ml LVLs %diff -0.55 % ESV(MOD-bp) 38.8 ml EF(MOD-bp) 63.0 % SV(MOD-sp4) 63.1 ml SI(MOD-sp4) 29.2 ml/m\S\2 SV(MOD-sp2) 67.5 ml SI(MOD-sp2) 31.2 ml/m\S\2 SV(MOD-bp) 65.9 ml SI(MOD-bp) 30.5 ml/m\S\2 SV(sp4-el) 64.8 ml SI(sp4-el) 30.0 ml/m\S\2 SV(sp2-el) 71.4 ml SI(sp2-el) 33.0 ml/m\S\2 Doppler Measurements and Calculations MV E max nabil 114.9 cm/sec MV A max nabil 104.8 cm/sec MV E/A 1.1 MV dec time 0.19 sec Ao V2 max 144.5 cm/sec Ao max PG 8.4 mmHg Ao max PG (full) 4.7 mmHg LV V1 max PG 3.7 mmHg LV V1 max 96.2 cm/sec TR max nabil 247.0 cm/sec
--- NOTE | 2018-01-01 15:25 | Progress Note ---
Medicine Progress Note Date & Time of Visit: Jan 01, 2018 at 14:49. Subjective Pt was seen and examined Sitting in bed with no distress Pt said that she feels fine Pt said that she is back to her baseline She had a stress echo done this morning that was negative for ischemia She said that she does not have any chest pain, palpitation and sob Objective Last 8 Hrs Date Time Temp Pulse Resp B/P (MAP) Pulse Ox O2 Delivery O2 Flow Rate FiO2 01/01/18 12:00 98 Room Air 01/01/18 11:31 36.8 87 18 92/60 (71) 98 Room Air 01/01/18 08:00 98 Room Air 01/01/18 07:49 36.6 72 18 104/65 (78) 98 Room Air Physical Exam: General- No acute distress Head- atraumatic Eyes- PERRL, EOMI ENT- oropharynx clear Neck- supple, no JVD, Lungs- clear to auscultation Heart- regular rhythm, no murmur Abdomen- normal bowel sounds, soft Extremities-no calf tenderness Neuro- alert, oriented, PERRL, EOMI Skin- warm & dry Laboratory Results: Last 24 Hours Test 12/31/17 19:12 01/01/18 01:05 01/01/18 07:40 01/01/18 13:25 Troponin I < 0.015 ng/ml < 0.015 ng/ml < 0.015 ng/ml 0.282 ng/ml Triglycerides Level 58 mg/dl Cholesterol Level 197 mg/dl HDL Cholesterol 77 mg/dl LDL Cholesterol, Calculated 108 mg/dl VLDL Cholesterol, Calculated 12 mg/dl Cholesterol/HDL Ratio 2.6 Assessment & Plan Chest pain Was admitted for recurrent chest pain EKG on admission showed no ischemic changes Troponinx3 sets negative Dobutamine stress echo done was negative for ischemia currently patient denies any symptoms 4th set of troponin done after the stress was elevated Will repeat troponin continue monitor in tele for now Dobutamine stress echo * STRESS STUDY: Normal pharmacologic stress echocardiogram. No echocardiographic or ECG evidence of myocardial ischemia having achieved heart rate adequate for diagnostic purposes. * -- Conclusions -- * The left ventricle is normal in size. * Left ventricular systolic function is normal. * Ejection Fraction = 60-65%. Elevated troponin Mostly related to the dobutamine stress echo Asymptomatic No arrhythmia on tele monitor Case discussed with cardiology about the stress echo and confirmed the stress echo was negative Cardiology agreed that the bump in troponin, seems to be related to the recent stress echo Check troponin later Asthma Continue her current home medications Stable Hypothyroidism Continue levothyroxine Chronic back pain On morphine and oxycodone Obstructive sleep apnea Stable Esophageal reflux continue PPI DVT prophylaxis On heparin subq CODE STATUS FULL CODE Disposition Possible discharge home today Current Inpatient Medications: Current Inpatient Medications Medications (Trade) Dose Ordered Sig/Celine Route Start Time Stop Time Status Last Admin Dose Admin Heparin Sodium (Porcine) (Heparin Sq 5000 Unit/0.5ml) 5,000 unit Q8 SQ 12/31/17 15:00 01/30/18 14:59 01/01/18 05:55 5,000 UNIT Potassium Chloride/Sodium Chloride 1,000 ml @ 75 mls/hr [id number] IV 12/31/17 15:00 01/30/18 13:17 01/01/18 04:42 75 MLS/HR Ondansetron HCl (Zofran Inj) 4 mg Q6H PRN IV 12/31/17 13:30 01/30/18 13:29 Nitroglycerin (Nitrostat Tab) 0.4 mg UD PRN SL 12/31/17 13:30 01/30/18 13:29 Albuterol (Ventolin Hfa Inhaler) 2 puffs Q6 INH 12/31/17 18:00 01/30/18 17:59 01/01/18 11:40 2 PUFFS Bupropion HCl (Wellbutrin-Sr Tab) 200 mg BID PO 12/31/17 21:00 01/30/18 20:59 01/01/18 07:51 200 MG Cholecalciferol (Vitamin D Tab) 1,000 inter.unit DAILY PO 01/01/18 09:00 01/31/18 08:59 01/01/18 07:51 1,000 INTER.UNIT Fluoxetine HCl (Prozac Cap) 40 mg DAILY PO 01/01/18 09:00 01/31/18 08:59 01/01/18 07:51 40 MG Gabapentin (Neurontin Tab) 600 mg HS PO 12/31/17 21:00 01/30/18 20:59 12/31/17 20:39 600 MG Levothyroxine Sodium (Synthroid Tab) 75 mcg DAILYBB PO 01/01/18 06:00 01/31/18 05:59 01/01/18 05:57 75 MCG Multivitamins (Multivitamin Tab) 1 tab DAILY PO 01/01/18 09:00 01/31/18 08:59 01/01/18 07:50 1 TAB Alprazolam (Xanax Tab) 1 mg TID PO 12/31/17 21:00 01/30/18 13:29 12/31/17 20:40 1 MG Oxycodone HCl (Roxicodone Immediate Rel Tab) 15 mg QID PRN PO 12/31/17 17:00 01/14/18 13:29 01/01/18 13:34 15 MG Miscellaneous (Iv Fluids Completed) 1 ea PRN PRN N/A 12/31/17 15:30 12/31/18 15:29 Morphine Sulfate (Oramorph Sr Tab) 15 mg BID PO 01/01/18 09:00 01/15/18 08:59 01/01/18 09:02 15 MG
[2018-01-01] MEDS: GABAPENTIN 600 MG TAB PO SCH (20:32)
[2018-01-01] MEDS ORDERED: ZOLPIDEM TARTRATE 5 MG TAB PO ONE (21:45)
[2018-01-02] VITALS (7 sets, daily range): BP systolic 102–125; BP diastolic 66–83; PULSE 67–83; TEMP 36.5–36.7; O2SAT 97–98
[2018-01-02] MEDS: ALBUTEROL HFA 8 GM INHALER INH SCH ×2 (00:01→05:59)
[2018-01-02] MEDS: LEVOTHYROXINE 75 MCG TAB PO SCH (05:59)
[2018-01-02] MEDS: HEPARIN SOD 5000 UNIT/0.5 ML CARP SQ SCH (06:00)
[2018-01-02] MEDS ORDERED: ACETAMINOPHEN 325 MG TAB PO PRN (06:15)
[2018-01-02] MEDS: CHOLECALCIFEROL 1000 INTER.UNIT TAB PO SCH (08:06)
[2018-01-02] MEDS: FLUOXETINE HCL 20 MG CAP PO SCH (08:06)
[2018-01-02] MEDS: BuPROPion SR 100 MG TABCR PO SCH (08:06)
[2018-01-02] MEDS: ALPRAZOLAM 0.5 MG TAB PO SCH (08:08)
[2018-01-02] MEDS: MoRPHine SULFATE CR 15 MG TAB (MS CONTIN) PO SCH (09:03)
--- NOTE | 2018-01-02 10:16 | Progress Note ---
Medicine Progress Note Date & Time of Visit: Jan 02, 2018 at 10:13. Subjective Pt was seen and examined Lying in bed with no distress Pt said that she feels fine She has not had any chest pain since admitted Denies any SOB, palpitation, dizziness, chest pain Objective Last 8 Hrs Date Time Temp Pulse Resp B/P (MAP) Pulse Ox O2 Delivery O2 Flow Rate FiO2 01/02/18 08:12 36.7 67 20 116/76 (89) 98 Room Air 01/02/18 08:00 97 Room Air 01/02/18 04:06 102/66 (78) 01/02/18 04:00 Room Air 01/02/18 03:55 36.6 69 16 97 Room Air Physical Exam: General- No acute distress Head- atraumatic Eyes- PERRL, EOMI ENT- oropharynx clear Neck- supple, no JVD, Lungs- clear to auscultation Heart- regular rhythm Abdomen- normal bowel sounds, soft Extremities-no calf tenderness Neuro- alert, oriented, PERRL, EOMI Skin- warm & dry Laboratory Results: Last 24 Hours Test 01/01/18 13:25 01/01/18 18:04 01/02/18 05:48 Troponin I 0.282 ng/ml 0.347 ng/ml 0.081 ng/ml Assessment & Plan Chest pain Was admitted for recurrent chest pain EKG on admission showed no ischemic changes Troponinx3 sets negative Dobutamine stress echo done was negative for ischemia currently patient denies any symptoms 4th set of troponin done after the stress was elevated Will repeat troponin continue monitor in tele for now Dobutamine stress echo Resolved * STRESS STUDY: Normal pharmacologic stress echocardiogram. No echocardiographic or ECG evidence of myocardial ischemia having achieved heart rate adequate for diagnostic purposes. * -- Conclusions -- * The left ventricle is normal in size. * Left ventricular systolic function is normal. * Ejection Fraction = 60-65%. Elevated troponin Mostly related to the dobutamine stress echo EKG repeat this morning showed no ischemic changes Asymptomatic No arrhythmia on tele monitor Case discussed with cardiology about the stress echo and confirmed the stress echo was negative Cardiology agreed that the bump in troponin, seems to be related to the recent stress echo Troponin trending down Asthma Continue her current home medications Stable Hypothyroidism Continue levothyroxine Chronic back pain On morphine and oxycodone Obstructive sleep apnea Stable Esophageal reflux continue PPI DVT prophylaxis On heparin subq CODE STATUS FULL CODE Disposition Possible discharge home today Current Inpatient Medications: Current Inpatient Medications Medications (Trade) Dose Ordered Sig/Celine Route Start Time Stop Time Status Last Admin Dose Admin Heparin Sodium (Porcine) (Heparin Sq 5000 Unit/0.5ml) 5,000 unit Q8 SQ 12/31/17 15:00 01/30/18 14:59 01/02/18 06:00 5,000 UNIT Potassium Chloride/Sodium Chloride 1,000 ml @ 75 mls/hr [id number] IV 12/31/17 15:00 01/30/18 13:17 01/01/18 17:54 75 MLS/HR Ondansetron HCl (Zofran Inj) 4 mg Q6H PRN IV 12/31/17 13:30 01/30/18 13:29 Nitroglycerin (Nitrostat Tab) 0.4 mg UD PRN SL 12/31/17 13:30 01/30/18 13:29 Albuterol (Ventolin Hfa Inhaler) 2 puffs Q6 INH 12/31/17 18:00 01/30/18 17:59 01/02/18 05:59 2 PUFFS Bupropion HCl (Wellbutrin-Sr Tab) 200 mg BID PO 12/31/17 21:00 01/30/18 20:59 01/02/18 08:06 200 MG Cholecalciferol (Vitamin D Tab) 1,000 inter.unit DAILY PO 01/01/18 09:00 01/31/18 08:59 01/02/18 08:06 1,000 INTER.UNIT Fluoxetine HCl (Prozac Cap) 40 mg DAILY PO 01/01/18 09:00 01/31/18 08:59 01/02/18 08:06 40 MG Gabapentin (Neurontin Tab) 600 mg HS PO 12/31/17 21:00 01/30/18 20:59 01/01/18 20:32 600 MG Levothyroxine Sodium (Synthroid Tab) 75 mcg DAILYBB PO 01/01/18 06:00 01/31/18 05:59 01/02/18 05:59 75 MCG Multivitamins (Multivitamin Tab) 1 tab DAILY PO 01/01/18 09:00 01/31/18 08:59 01/01/18 07:50 1 TAB Alprazolam (Xanax Tab) 1 mg TID PO 12/31/17 21:00 01/30/18 13:29 12/31/17 20:40 1 MG Oxycodone HCl (Roxicodone Immediate Rel Tab) 15 mg QID PRN PO 12/31/17 17:00 01/14/18 13:29 01/01/18 21:47 15 MG Miscellaneous (Iv Fluids Completed) 1 ea PRN PRN N/A 12/31/17 15:30 12/31/18 15:29 Morphine Sulfate (Oramorph Sr Tab) 15 mg BID PO 01/01/18 09:00 01/15/18 08:59 01/02/18 09:03 15 MG Acetaminophen (Tylenol Tab) 650 mg Q6H PRN PO 01/02/18 06:15 02/01/18 06:14 01/02/18 06:20 650 MG
--- NOTE | 2018-01-02 10:22 | Discharge Instructions ---
Discharge Instructions Date of Service Jan 02, 2018. Admission Reason for Admission: Chest Pain Discharge Discharge Diagnosis / Problem: Chest pain, Chronic back pain, Elevated troponin Discharge Goals Goal(s): Decrease discomfort, Improve function, Improve disease control Activity Recommendations Activity Limitations: resume your previous activity (as tolerated) . Instructions / Follow-Up Instructions / Follow-Up Follow up with your primary care provider Dr. Gaitan on 01/05 @ 10:45 AM Please seek medical attention or go to the closest ER if chest pain reoccurs Current Hospital Diet Patient's current hospital diet: AHA Diet (Heart Healthy) Discharge Diet Recommended Diet: AHA Diet (Heart Healthy) Pending Studies Studies pending at discharge: no Laboratory Results Lipid Panel Test 01/01/18 07:40 Range/Units Triglycerides Level 58 0-150 mg/dl Cholesterol Level 197 0-200 mg/dl HDL Cholesterol 77 mg/dl Cholesterol/HDL Ratio 2.6 LDL Cholesterol, Calculated 108 mg/dl Medical Emergencies . Who to Call and When: Medical Emergencies: If at any time you feel your situation is an emergency, please call 911 immediately. . Non-Emergent Contact Non-Emergency issues call your: Primary Care Provider Call Non-Emergent contact if: your pain is concerning you . . "Provider Documentation" section prepared by Yuni Goldstein. .
[2018-01-02] MEDS: MULTIVITAMIN TAB PO SCH (10:37)
[2018-01-02] MEDS: OXYCODONE HCL IR 5 MG TAB (IMMEDIATE RELEASE) PO PRN (10:50)
--- NOTE | 2018-01-04 08:08 | Discharge Summary ---
Discharge Summary Date of Service Jan 04, 2018. Discharge Summary Admission Date: Dec 31, 2017 at 13:23 Discharge Date: Jan 02, 2018 Discharge Disposition: Home Principal Diagnosis: Chest pain Secondary Diagnoses/Problems: Chronic back pain Elevated troponin Procedures: DOBUTAMINE STRESS ECHO Interpretation Summary * Name: GERRY SERRANO Study Date: 01/01/2018 08:35 AM BP: 132/66 mmHg * Patient Location: [facility]\\S\\[facility]\\S\\1 HR: 68 * : 1965 (M/d/yyyy) Gender: Female Height: 65 in * Age: 52 yrs Ethnicity: [place] Weight: 247 lb * Ordering Physician: Kaye Galvez * Referring Physician: Self, Referred * Performed By: Summer Ny RDCS * * Reason For Study: CHEST PAIN * BSA: 2.2 m2 * STRESS STUDY: Normal pharmacologic stress echocardiogram. No echocardiographic or ECG evidence of myocardial ischemia having achieved heart rate adequate for diagnostic purposes. * -- Conclusions -- * The left ventricle is normal in size. * Left ventricular systolic function is normal. * Ejection Fraction = 60-65%. Procedure Details * DOBUTAMINE ECHO, CPT#61757 Left Ventricle * The left ventricle is normal in size. * There is normal left ventricular wall thickness. * Ejection Fraction = 60-65%. * Left ventricular systolic function is normal. Right Ventricle * The right ventricle is normal size. * The right ventricular systolic function is normal. Atria * The left atrial size is normal. * Right atrial size is normal. * No ASD detected; PFO is not assessed. Mitral Valve * The mitral valve is normal in structure and function. Tricuspid Valve * The tricuspid valve is not well visualized, but is grossly normal. * There is trace tricuspid regurgitation. Aortic Valve * The aortic valve is normal in structure and function. Pulmonic Valve * The pulmonic valve is not well visualized. Great Vessels * The aortic root and proximal ascending aorta are normal sized. Pericardium * There is no pericardial effusion. Stress Parameters * The stress portion of this study was personally supervised by the undersigned interpreting physician. * Rest heart rate was '68' BPM. * Rest blood pressure was '132/66' * Maximum heart rate achieved was 155 bpm. * Maximum heart rate was 92 % of maximum age-predicted heart rate. * Maximum blood pressure was '219/52' * Maximum Dobutamine infusion rate was '50' mcg/kg/min. * A total of .75 mg of intravenous Atropine was used to supplement Dobutamine for heart rate response. * Dobutamine infusion was terminated due to achieving target heart rate * A total of 10 mg of IV Metoprolol was administered to reverse Dobutamine- induced tachycardia. SINGLE VIEW CHEST CLINICAL HISTORY: Atypical chest pain. FINDINGS: An AP, portable, upright chest radiograph is compared to study dated 03/21/2015 and correlated with chest CT dated 06/04/2008. The examination is degraded by portable technique, large body habitus, and patient rotation. The heart is top normal for projection. The pulmonary vasculature is noncongested. There is bibasilar atelectasis. No airspace consolidation or large pleural effusion is identified. No pneumothorax is seen. The skeletal structures are osteopenic. The bony thorax is grossly intact. IMPRESSION: No acute cardiopulmonary abnormality. Electronically signed by: Yogi Treadwell M.D. 12/31/2017 9:31 AM Dictated Date/Time: 12/31/2017 9:30 AM Medication Reconciliation Continued Medications: Albuterol Hfa (Ventolin Hfa) 200 Puffs/20986 Mcg Aers 2-4 PUFFS INH Q6H, #1 INHALER Alprazolam (Xanax) 1 Mg Tab 1 MG PO TID PRN for Anxiety, TAB Black Cohosh (Cimicifuga [place] (Black Cohosh) 540 Mg Cap Bupropion Hcl (Wellbutrin Sr) 200 Mg Tab 200 MG PO BID, TAB Celecoxib (CeleBREX) 200 Mg Cap 200 MG PO DAILY, CAP Cholecalciferol (Vitamin D) 1,000 Unit Tab 1000 UNITS PO DAILY Fluoxetine Hcl (Prozac) 20 Mg Cap 40 MG PO DAILY, CAP Gabapentin (Neurontin) 300 Mg Cap 600 MG PO HS, CAP Hydrochlorothiazide (Hctz) 25 Mg Tab 25 MG PO DAILY, TAB Levothyroxine Sodium (Synthroid) 75 Mcg Tab 75 MCG PO DAILY Morphine Sulfate (Morphine Sulfate Cr) 15 Mg Tab 15 MG PO BID Multiple Vitamin (Multivitamin) 1 Tab Tab 1 TAB PO DAILY, TAB Ondansetron Hcl (Zofran) 4 Mg Tab 4 MG PO Q6H PRN for Nausea, TAB Oxycodone Hcl (Oxycontin) 15 Mg Tab 15 MG PO QID PRN for Pain, TAB Admission Information HPI (per Admitting provider): She is a 52-year-old white female with significant hypothyroidism chronic back pain esophageal reflux apparently woke up from sleep at around 5 AM with chest pain. The pain was there for about half an hour and it was not associated with any other significant symptoms. She tried to take some Tums with some improvement and later on he decided to come to the emergency room on the way to the emergency room she got another attack of chest pain, this time left side and also to the left shoulder no shortness of breath associated with it. She also had to have another episode of pain at the emergency room that was controlled with sublingual nitro. She also recently finished a course of prednisone for possible exacerbation of asthma. Her initial blood work including troponin and EKG were unremarkable and she was about to go home. She suffered another attack of chest pain and during that time she was advised to stay in the hospital. Cardiology consultation was asked for for a probable stress test down the line. Physical Exam (per Admitting): General Appearance: + mild distress Head: normocephalic Eyes: normal inspection, PERRL ENT: normal ENT inspection Neck: supple Respiratory/Chest: chest non-tender, lungs clear, no respiratory distress, + wheezing (Minimal) Cardiovascular: regular rate, rhythm Abdomen/GI: normal bowel sounds Back: normal inspection Extremities/Musculoskelatal: + pedal edema (Chronic) Neurologic/Psych: no motor/sensory deficits, alert, normal mood/affect Skin: normal color Lymphatic: no adenopathy Hospital Course Chest pain Was admitted for recurrent chest pain EKG on admission showed no ischemic changes Troponinx3 sets negative Dobutamine stress echo done was negative for ischemia currently patient denies any symptoms 4th set of troponin done after the stress was elevated Will repeat troponin continue monitor in tele for now Dobutamine stress echo Resolved * STRESS STUDY: Normal pharmacologic stress echocardiogram. No echocardiographic or ECG evidence of myocardial ischemia having achieved heart rate adequate for diagnostic purposes. * -- Conclusions -- * The left ventricle is normal in size. * Left ventricular systolic function is normal. * Ejection Fraction = 60-65%. Elevated troponin Mostly related to the dobutamine stress echo EKG repeat this morning showed no ischemic changes Asymptomatic No arrhythmia on tele monitor Case discussed with cardiology about the stress echo and confirmed the stress echo was negative Cardiology agreed that the bump in troponin, seems to be related to the recent stress echo Troponin trending down Asthma Continue her current home medications Stable Hypothyroidism Continue levothyroxine Chronic back pain On morphine and oxycodone Obstructive sleep apnea Stable Esophageal reflux continue PPI DVT prophylaxis On heparin subq CODE STATUS FULL CODE Disposition Possible discharge home today Total time spent on discharge = 35 MINUTES This includes examination of the patient, discharge planning, medication reconciliation, and communication with other providers. Discharge Instructions Discharge Instructions Date of Service Jan 02, 2018. Admission Reason for Admission: Chest Pain Discharge Discharge Diagnosis / Problem: Chest pain, Chronic back pain, Elevated troponin Discharge Goals Goal(s): Decrease discomfort, Improve function, Improve disease control Activity Recommendations Activity Limitations: resume your previous activity (as tolerated) . Instructions / Follow-Up Instructions / Follow-Up Follow up with your primary care provider Dr. Gaitan on 01/05 @ 10:45 AM Please seek medical attention or go to the closest ER if chest pain reoccurs Current Hospital Diet Patient's current hospital diet: AHA Diet (Heart Healthy) Discharge Diet Recommended Diet: AHA Diet (Heart Healthy) Pending Studies Studies pending at discharge: no Laboratory Results Lipid Panel Test 01/01/18 07:40 Range/Units Triglycerides Level 58 0-150 mg/dl Cholesterol Level 197 0-200 mg/dl HDL Cholesterol 77 mg/dl Cholesterol/HDL Ratio 2.6 LDL Cholesterol, Calculated 108 mg/dl Medical Emergencies . Who to Call and When: Medical Emergencies: If at any time you feel your situation is an emergency, please call 911 immediately. . Non-Emergent Contact Non-Emergency issues call your: Primary Care Provider Call Non-Emergent contact if: your pain is concerning you . . "Provider Documentation" section prepared by Yuni Goldstein. . Additional Copies To Solomon Gaitan III, M.D.
== END 2018-01-02 13:11 | disposition home or self-care (01) ==
LOC: C.EDB 08:34 → C.2T 13:23 → ENRESERV 13:55
PROVIDERS: ADMIT Internal Medicine; ATTEND Internal Medicine
DX: R07.9 Chest pain, unspecified (principal); M54.5 Low back pain; E03.9 Hypothyroidism, unspecified; K21.9 Gastro-esophageal reflux disease without esophagitis; J44.9 Chronic obstructive pulmonary disease, unspecified; I10 Essential (primary) hypertension; M17.11 Unilateral primary osteoarthritis, right knee; Z87.891 Personal history of nicotine dependence; Z91.048 Other nonmedicinal substance allergy status; G89.29 Other chronic pain

== ENCOUNTER 2024-12-20 05:23 | Observation (INO) ==
--- NOTE | 2024-11-17 12:55 | PAT Medication Instructions ---
Medication Instructions Date of Service November 17, 2024 Home Medications Medication Instructions Recorded oxycodone 5 mg tablet 10 mg (2 x 5 mg) PO Q6 PRN pain 04/17/23 #60 tabs oxycodone 5 mg tablet 10 mg (2 x 5 mg) PO Q8H PRN pain 04/17/23 #30 tabs oxycodone 5 mg tablet 5 mg PO Q8H PRN pain #30 tabs 04/27/23 oxycodone 5 mg tablet 5 mg PO Q8H PRN pain #30 tabs 05/07/23 prednisone 10 mg tablet 10 mg PO DAILY #30 tabs 08/23/24 albuterol sulfate 1.25 mg/3 mL solution for nebulization 1.25 mg inhalation QID PRN Shortness Of Breath Or Wheezing albuterol sulfate 90 mcg/actuation aerosol inhaler 2 - 4 puff inhalation Q6H PRN Shortness Of Breath Or Wheezing bupropion HCl 200 mg tablet,12 hr sustained-release (Wellbutrin SR) 200 mg PO BID cholecalciferol (vitamin D3) 25 mcg (1,000 unit) capsule (Vitamin D3) 1,000 unit PO QAM hydrochlorothiazide 25 mg tablet 25 mg PO QAM levothyroxine 75 mcg capsule 75 mcg PO QAM multivitamin (Multiple Vitamins tablet) 1 tab PO QAM naproxen sodium 220 mg tablet (Aleve) 220 mg PO BID PRN Pain omeprazole magnesium 10 mg oral suspension,delayed release (Prilosec) 40 mg PO QAM oxycodone 5 mg tablet 10 mg (2 x 5 mg) PO Q6-8 PRN pain oxycodone 5 mg tablet 5 mg PO Q8H PRN pain prednisone 10 mg tablet 10 mg PO DAILY amoxicillin 875 mg-potassium clavulanate 125 mg tablet 1 tab PO BID duloxetine 60 mg capsule,delayed release (Cymbalta) 60 mg PO QAM Continue as directed amoxicillin 875 mg-potassium clavulanate 125 mg tablet 1 tab PO BID ASK your surgeon for instructions naproxen sodium 220 mg tablet (Aleve) 220 mg PO BID PRN Pain DO NOT take the morning of surgery cholecalciferol (vitamin D3) 25 mcg (1,000 unit) capsule (Vitamin D3) 1,000 unit PO QAM hydrochlorothiazide 25 mg tablet 25 mg PO QAM multivitamin (Multiple Vitamins tablet) 1 tab PO QAM Take morning of surgery With a small sip of water, OTHERWISE NOTHING TO EAT OR DRINK AFTER MIDNIGHT: albuterol sulfate 1.25 mg/3 mL solution for nebulization 1.25 mg inhalation QID PRN Shortness Of Breath Or Wheezing (if needed) albuterol sulfate 90 mcg/actuation aerosol inhaler 2 - 4 puff inhalation Q6H PRN Shortness Of Breath Or Wheezing (use if needed; please bring rescue inhaler with you to hospital day of surgery if possible) bupropion HCl 200 mg tablet,12 hr sustained-release (Wellbutrin SR) 200 mg PO BID levothyroxine 75 mcg capsule 75 mcg PO QAM omeprazole magnesium 10 mg oral suspension,delayed release (Prilosec) 40 mg PO QAM oxycodone 5 mg tablet 10 mg (2 x 5 mg) PO PRN pain (if needed) oxycodone 5 mg tablet 5 mg PO Q8H PRN pain (if needed) prednisone 10 mg tablet 10 mg PO DAILY duloxetine 60 mg capsule,delayed release (Cymbalta) 60 mg PO QAM Take evening before surgery albuterol sulfate 1.25 mg/3 mL solution for nebulization 1.25 mg inhalation QID PRN Shortness Of Breath Or Wheezing (if needed) albuterol sulfate 90 mcg/actuation aerosol inhaler 2 - 4 puff inhalation Q6H PRN Shortness Of Breath Or Wheezing (if needed) bupropion HCl 200 mg tablet,12 hr sustained-release (Wellbutrin SR) 200 mg PO BID oxycodone 5 mg tablet 10 mg (2 x 5 mg) PO PRN pain (if needed) oxycodone 5 mg tablet 5 mg PO Q8H PRN pain (if needed) amoxicillin 875 mg-potassium clavulanate 125 mg tablet 1 tab PO BID Other Notes If you have any questions please call us at [phone] or [phone] or [phone] or [phone]
--- NOTE | 2024-11-25 12:57 | Anesthesiology Consultation ---
Date of Service November 25, 2024 Assessment & Plan (1) Encounter for pre-operative examination: - Infectious disease screening: Per assessment on 11/25/24- Patient had URI symptom onset 11/10/24. Rx'd abx/prednisone. At PAT visit 11/25/24, patient notes symptoms resolution since abx/prednisone completion. Patient advised to contact surgeon/PAT if recurrence of symptoms prior to surgery. - Outpatient joint assessment: Pt currently scheduled for inpatient pathway. If surgeon requests review for outpatient joint pathway, patient is not recommended candidate for outpatient joint program from anesthesia standpoint based on available information. Chart Review Chart Review: Acceptable Risk for Surgery and Patient seen in Pre Admission Testing Teaching & Discussion Pre-Anesthesia Teaching/Discussion Notes: Instructed NPO after midnight before surgery,except medications with 15 cc of water. Medication instructions provided according to the PAT guidelines. History Surgery Operation Date: 12/20/24 07:00 Proposed Procedures p Right Total Hip Arthroplasty - Messi Leone MD Height/Weight Height: 5 ft 5 in Weight: 134.3 kg Allergies Allergy/AdvReac Type Severity Reaction Status Date / Time cat dander Allergy Unknown Itchy, Verified 11/17/24 12:56 swelling dog dander Allergy Unknown Itchy, Verified 11/17/24 12:56 swelling mold Allergy Unknown Itchy, Verified 11/17/24 12:56 swelling No Known Drug Allergies Allergy Unknown Verified 11/17/24 11:31 Dust Allergy Unknown Itchy, Uncoded 11/17/24 12:56 swelling Medications Home Medications Medication Instructions Recorded Confirmed Last Taken albuterol sulfate 1.25 mg/3 mL 1.25 mg inhalation QID PRN 06/02/18 11/17/24 09/19/18 solution for nebulization Shortness Of Breath Or Wheezing albuterol sulfate 90 mcg/actuation 2 - 4 puff inhalation Q6H PRN 06/02/18 11/17/24 09/19/18 aerosol inhaler Shortness Of Breath Or Wheezing bupropion HCl 200 mg tablet,12 hr 200 mg PO BID 06/02/18 11/17/24 09/19/18 sustained-release (Wellbutrin SR) cholecalciferol (vitamin D3) 25 1,000 unit PO QAM 06/02/18 11/17/24 09/19/18 mcg (1,000 unit) capsule (Vitamin D3) hydrochlorothiazide 25 mg tablet 25 mg PO QAM 06/02/18 11/17/24 09/19/18 levothyroxine 75 mcg capsule 75 mcg PO QAM 06/02/18 11/17/24 09/19/18 multivitamin (Multiple Vitamins 1 tab PO QAM 06/02/18 11/17/24 09/19/18 tablet) naproxen sodium 220 mg tablet 220 mg PO BID PRN Pain 06/02/18 11/17/24 09/19/18 (Aleve) omeprazole magnesium 10 mg oral 40 mg PO QAM 06/02/18 11/17/24 09/19/18 suspension,delayed release (Prilosec) oxycodone 5 mg tablet 10 mg (2 x 5 mg) PO Q6 PRN pain 04/17/23 11/17/24 Unknown #60 tabs oxycodone 5 mg tablet 10 mg (2 x 5 mg) PO Q8H PRN pain 04/17/23 11/17/24 Unknown #30 tabs oxycodone 5 mg tablet 5 mg PO Q8H PRN pain #30 tabs 04/27/23 11/17/24 Unknown oxycodone 5 mg tablet 5 mg PO Q8H PRN pain #30 tabs 05/07/23 11/17/24 Unknown duloxetine 60 mg capsule,delayed 60 mg PO QAM 11/17/24 11/17/24 Unknown release (Cymbalta) Past Medical History Medical History Anxiety Asthma Depression Hypertension Hypothyroidism Lumbar pain Lumbar stenosis Morbid obesity Osteoarthritis Right leg pain Sleep apnea no device Exercise / Class Metabolic Activity III < 4 Walking/Shop/Light housework (uses walker) Past Surgical History Surgical History History of partial knee replacement left/right Hx of basal cell carcinoma excision Hx of dilation and curettage Hx of sinus surgery Hx of tubal ligation Past Anesthesia History No Hx of Anesthesia Complications and No Family Hx of Anesthesia Complications History of PONV No Hx of PONV and No Hx of Motion Sickness Social History Smoking Status: Former smoker Do You Dip or Chew Tobacco: No Smoking End Date: Quit 2004 Hx Alcohol Use: Yes alcohol intake frequency: a few times a month Hx Substance Use: No substance use type: does not use Review of Systems Patient denies chest pain, shortness of breath, fever, chills, cough, wheezing, palpitations. Physical Exam Vital Signs BP 130/86 P 90 TEMP 98.4 SP02 98%RA RESP 18 Physical Full cervical extension range of motion. Full TMJ range of motion. TMD 3 finger breaths Mallampati Score III Dentition: edentulous Lungs: clear throughout to auscultation Cardiac: regular rate and rhythm, no murmurs noted Spine: normal Carotid arteries: negative bruit Extremities: non-pitting LE edema Lab Results Anesthesia Preop Results Results Anesthesia Widget: WBC 5.11 K/ul (4.8-10.8) 11/25/24 Hgb 13.8 g/dl (12.0-16.0) 11/25/24 Hct 43.4 % (37.0-47.0) 11/25/24 Plt 208 K/uL (130-400) 11/25/24 PT 10.1 Seconds (9.0-12.0) 11/25/24 PTT 26 Seconds (21-31) 11/25/24 INR 0.9 (0.9-1.1) 11/25/24 Blood Type O Positive 11/25/24 Antibody Screen NEGATIVE 11/25/24 Testing Laboratory Results 10/26/24 SODIUM 143 POTASSIUM 4.9 CHLORIDE 104 CO2 28 BUN 15 CREATININE 0.8 GLUCOSE 94 HGBA1C 5.6 ESR 21 CRP 6H TSH 2.76 Electrocardiogram Date: 11/25/24 NSR at 80bpm. "Normal ECG" Chest X-Ray Date: 11/25/24 Findings: + NAD
--- NOTE | 2024-12-17 08:53 | History & Physical Report ---
Date of Service December 17, 2024 Assessment & Plan (1) Arthritis of right hip: 59-year-old female morbidly obese with advanced right hip arthritis. This is progressed markedly over the past 3 years. Her pain is debilitating. She like to proceed with total hip replacement. Plan: Will plan to take her to the operating room do a right total hip replacement. The risks and benefits of this procedure explained and she understands. I did talk about her increased risk of infection and thrombosis based on her large size and she is aware this. She would like to proceed. He is planned to be discharged to home using [facility] home health program. We use aspirin for DVT prophylaxis. Will likely use a Prevena VAC dressing due to her thick soft tissue envelope. (2) Degenerative arthritis of lumbar spine: (3) Lumbar stenosis: (4) Morbid obesity: History of Present Illness Chief Complaint: . Right hip pain. Primary Care Provider: Judith Becker PA-C . The patient is a 59-year-old female referred by Dr. Diane for surgical treatment of right hip. She has a 3-year history of increasing right hip pain discomfort described to gotten worse over time. She does also have a history of back problems managed by the pain clinic. Over the past 3 years she developed increased pain discomfort in the right hip. She has had to use a walker to get around. She is pretty miserable in pain. She did attempt weight loss and was successful initially but become less successful as her mobility decreased. Pains mostly groin pain thigh pain and lateral hip pain. She did have an intra- articular injection which helped temporarily. She is ready to have her hip fixed. Allergies Allergy/AdvReac Type Severity Reaction Status Date / Time cat dander Allergy Unknown Itchy, Verified 11/17/24 12:56 swelling dog dander Allergy Unknown Itchy, Verified 11/17/24 12:56 swelling mold Allergy Unknown Itchy, Verified 11/17/24 12:56 swelling No Known Drug Allergies Allergy Unknown Verified 11/17/24 11:31 Dust Allergy Unknown Itchy, Uncoded 11/17/24 12:56 swelling Home Medications Medication Instructions Recorded Confirmed Type albuterol sulfate 1.25 mg/3 mL 1.25 mg inhalation QID PRN 06/02/18 11/17/24 History solution for nebulization Shortness Of Breath Or Wheezing albuterol sulfate 90 mcg/actuation 2 - 4 puff inhalation Q6H PRN 06/02/18 11/17/24 History aerosol inhaler Shortness Of Breath Or Wheezing bupropion HCl 200 mg tablet,12 hr 200 mg PO BID 06/02/18 11/17/24 History sustained-release (Wellbutrin SR) cholecalciferol (vitamin D3) 25 1,000 unit PO QAM 06/02/18 11/17/24 History mcg (1,000 unit) capsule (Vitamin D3) hydrochlorothiazide 25 mg tablet 25 mg PO QAM 06/02/18 11/17/24 History levothyroxine 75 mcg capsule 75 mcg PO QAM 06/02/18 11/17/24 History multivitamin (Multiple Vitamins 1 tab PO QAM 06/02/18 11/17/24 History tablet) naproxen sodium 220 mg tablet 220 mg PO BID PRN Pain 06/02/18 11/17/24 History (Aleve) omeprazole magnesium 10 mg oral 40 mg PO QAM 06/02/18 11/17/24 History suspension,delayed release (Prilosec) oxycodone 5 mg tablet 10 mg (2 x 5 mg) PO Q6 PRN pain 04/17/23 11/17/24 Rx #60 tabs oxycodone 5 mg tablet 10 mg (2 x 5 mg) PO Q8H PRN pain 04/17/23 11/17/24 Rx #30 tabs oxycodone 5 mg tablet 5 mg PO Q8H PRN pain #30 tabs 04/27/23 11/17/24 Rx oxycodone 5 mg tablet 5 mg PO Q8H PRN pain #30 tabs 05/07/23 11/17/24 Rx duloxetine 60 mg capsule,delayed 60 mg PO QAM 11/17/24 11/17/24 History release (Cymbalta) Past Med/Surg History Problem List Encounter for pre-operative examination Arthritis of right hip Sacroiliitis Depression Anxiety Degenerative arthritis of lumbar spine Lumbar radiculopathy Lumbar myelopathy Greater trochanteric pain syndrome Lumbar stenosis Patellofemoral arthritis of right knee Osteoarthritis Asthma Sciatica of left side (Acute) Right knee DJD (Acute) Chronic pain of left knee (Acute) Medical History Morbid obesity Hypothyroidism Osteoarthritis Lumbar stenosis Right leg pain Lumbar pain Sleep apnea no device Depression Anxiety Asthma Hypertension Surgical History Hx of basal cell carcinoma excision Hx of dilation and curettage Hx of tubal ligation Hx of sinus surgery History of partial knee replacement left/right Social History Smoking Status: Former smoker Tobacco Type: Cigarettes Second Hand Exposure: No; Do You Dip or Chew Tobacco: No; Hx Alcohol Use: Yes Hx Substance Use: No Preferred Language: Israeli Communication Ability: Effective Hearing Ability: Normal Hebrew Cantor Required: No Beliefs That Will Affect Care: None marital status: Current Living Situation: Family current occupational status: employed current occupation: Sex Worker Or Escort Feels Safe at Home: Yes Assistive Devices: Glasses, Nebulizer, Scooter/Electric Scooter, Walker and Other Review of Systems All systems reviewed & are unremarkable except as noted in HPI & below. Physical Exam . Physical examination was a pleasant somewhat emotional teary-eyed female. She looks to be pretty uncomfortable in pain. Examination of the right hip reveal patient walks with use of a walker. Large soft tissue envelope. Leg lengths appear fairly equal although it is a little difficult to assess due to flexion contracture. She is got about a 10 degree external rotation contracture. She has marked pain with any type of hip motion. She is neurologically intact. Constitutional WD/WN, vitals as above Neck trachea midline, no thyromegaly Respiratory normal respiratory effort, lungs clear to auscultation Cardiovascular RRR, no murmur, no edema Gastrointestinal (Abdomen) normal bowel sounds, soft, nontender, no hepatosplenomegaly Results & Data Results & Data Laboratory Results . Diagnostic Findings . X-rays of the right hip were reviewed. She has advanced right hip arthritis. This is progressed markedly over the past 2 years. Got complete loss of joint space. She has cystic change on both sides of the joint. She has collapse of the femoral head. PG Care Time/CCT Total # of Minutes Spent Total Time Spent with Patient: Total time spent is greater than 50% in coordination of care (as documented) at patient's floor/unit and/or counseling patient: Coding Level of Care Code None Diagnoses Arthritis of right hip M16.11 Degenerative arthritis of lumbar spine M47.816 Lumbar stenosis M48.061 Morbid obesity E66.01
[2024-12-20] MEDS: LR 60ML/HR IV SCH (05:55)
[2024-12-20] MEDS: LR 500ML BOLUS, THEN 15ML/HR IV SCH (05:55)
[2024-12-20] MEDS: CeleBREX 200 MG CAP PO SCH (05:58)
[2024-12-20] MEDS: ACETAMINOPHEN 500 MG TAB PO SCH ×2 (05:58→14:26)
[2024-12-20] MEDS: FAMOTIDINE 20 MG TAB PO SCH (05:58)
[2024-12-20] MEDS: METOCLOPRAMIDE HCL 10 MG TABLET PO SCH (05:58)
[2024-12-20] MEDS ORDERED: BUPIVACAINE 0.5 % 5 MG/1 ML PF 10ML VIAL ONE (06:23)
[2024-12-20] MEDS ORDERED: MIDAZOLAM HCL 1 MG/ML 2ML VIAL ONE ×2 (06:36→07:39)
[2024-12-20] MEDS ORDERED: ONDANSETRON INJ 2 MG/ML 2 ML VIAL IV PRN ×2 (06:38→12:19)
[2024-12-20] MEDS ORDERED: ePHEDrine sulfate 50 MG/ML AMP IV PRN (06:38)
[2024-12-20] MEDS ORDERED: fentaNYL citrate PF 100 MCG/2 ML VIAL IV PRN (06:38)
[2024-12-20] MEDS ORDERED: ATROPINE SULFATE 0.1 MG/ML 10ML SYR IV PRN (06:38)
[2024-12-20] MEDS: TRANEXAMIC ACID 1,000 MG **IV Pre-op IV SCH (06:39)
--- NOTE | 2024-12-20 06:40 | History & Physical Bridge Note ---
Date of Service December 20, 2024 History & Physical Bridge Note I have examined the patient, reviewed the History & Physical and in the interval since the performance of the History & Physical I have noted the following changes of clinical significance: no changes noted
[2024-12-20] MEDS: ceFAZolin 3000MG 3,000 MG/72.5 ML BAG IV SCH (07:03)
[2024-12-20] MEDS ORDERED: ePHEDrine sulfate 50 MG/5 ML SYR ONE (07:13)
[2024-12-20] MEDS ORDERED: PROPOFOL IV EMULSION 10 MG/ML 100 ML VIAL IV ONE (07:13)
[2024-12-20] MEDS ORDERED: PHENYLEPHRINE 100MCG/ML 5ML SYR ONE (07:13)
[2024-12-20] MEDS ORDERED: PHENYLEPHRINE HCL 10 MG/ML VIAL ONE (07:13)
[2024-12-20] MEDS: BUPIVACAINE/EPINEPHRINE 0.5% MPF 1:200,000 30 ML VIAL ONE (07:38)
[2024-12-20] MEDS ORDERED: KETAMINE HCL 10MG/ML SYR ONE (07:41)
[2024-12-20] MEDS ORDERED: GLYCOPYRROLATE 0.2 MG/ML VIAL ONE (07:55)
--- NOTE | 2024-12-20 09:13 | Operative Report ---
PG Post Operative Report Pre & Post Diagnosis Operation Date: 12/20/24 07:00 Pre-Op Diagnosis: Right Hip Degenerative Joint Disease Post-Op Diagnosis: Right Hip Degenerative Joint Disease I identified the patient and participated in the time-out.: Yes Procedure Operation Date: 12/20/24 07:00 Actual Procedures p Right Total Hip Arthroplasty, Uncemented(Right) - Messi Leone MD Surgeon Messi Leone MD Casino Cashier Manager Micha Lutz PA-C Estimated Blood Loss 200 Findings Consistent with Post-Op Diagnosis Operative findings revealed a very large thick soft tissue envelope. 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 Specimens Right femoral head sent for pathology. Anesthesia Type Spinal MAC Complications none Disposition Accompanied Patient To Recovery: No Indications Patient is a 59-year-old morbidly obese female whose had a 2-year history of markedly increasing right hip pain discomfort the point she has become markedly disabled by her pain. She had x-rays showed a marked progression and severe right hip arthritis. She failed all conservative measures. She elected proceed with total hip arthroplasty. Description of Procedure Operative implants consist of: 1. Biomet G7 size 48 mm acetabular shell. 2. 6.5 cancellous acetabular screws 1 of 35 mm length and 125 mm length. 3. Hailey hole clinical marketing manager. 4. Highly cross-linked polyethylene liner with a 48 mm outer diameter and 32 mm inner diameter. 5. DePuy Corail size 11 KLA femoral stem. 6. +5/32 mm ceramic articular ball. The patient was taken the op room, identified, placed on the operating table in the supine position. All conductors were appropriately padded. IV antibiotics fibra anesthesia team. A spinal anesthetic been implemented holding area. Tidwell catheter was placed in sterile fashion. The patient was then placed in the left lateral cubitus position. An axillary roll was placed. A stool Birkett position was used for positioning. The right hip and leg were then prepped and draped in usual sterile fashion. A posterolateral approach to the right hip was then performed through a curvilinear incision centered over the greater trochanter. Sharp dissection got through subcutaneous tissues down to the level of the IT band and gluteal fascia. The subcutaneous soft tissue envelope was extremely thick. The IT band gluteal fascia was sized longitudinally in line with skin incision. The underlying greater bursa was excised. The piriformis and external rotators along with the posterior hip joint capsule then released from the posterior aspect the hip as a single layer. Great care was taken throughout the procedure protect the sciatic nerve at all times. The hip was dislocated. A femoral neck osteotomy cut was made with Final Cut about 10 mm above the lesser trochanter. Femoral head was removed and sent for pathology. The femur was retracted anteriorly. The acetabulum labrum was excised. The pulmonary fat was excised. Sequential reaming the acetabular was then performed beginning with size 43 and progressing up to 47. I reamed a little bit with a 48 reamer and then placed a 48 mm Biomet acetabular shell in about 40 degrees lateral opening and 20 degrees of anteversion. It is fixed with two 6.5 screws. A trial liner was placed. An anterior osteophyte was removed. Attention then drawn the femur. The proximal femur was entered with cookie-cutter followed by canal finder. I then broached beginning with size 8 and progressing up to 11. Excellent fit 11. I trialed the hip and the hip was stable and leg lengths appeared appropriate with a +5 articular ball. We elected to place these implants. All trial implants were removed. An apex hole clinical marketing manager was placed. Highly cross-linked polyethylene liner was placed. A size 11 KLA femoral stem was impacted in position. A +5/32 mm ceramic articular ball was placed. Hip was located and once again found to be stable. Attention drawn toward closing. The wounds irrigated with copious amounts pulsatile lavage solution. I did inject locally. With the 60 cc of half percent Marcaine with epinephrine. The posterior capsule and external rotators then repaired through drill holes in the posterior trochanter with #2 Tycron suture. The IT band gluteal fascia was then closed with #1 PDS suture running fashion. Subcutaneous tissue was then closed with 2 layers. 2. Vicryl suture in the subcutaneous tissues with 2-0 Dexon suture in a buried interrupted fashion. Skin was closed skin del. A Prevena VAC dressing was applied. Patient was then transferred to the recovery room in stable condition. Patient tolerated procedure well and there are no complications. Micha Lutz, my physician dental assistant, was present for the entire procedure. His assistance was essential and required for appropriate patient positioning, prepping and draping, surgical exposure, performing the technical details of the operation, placement the implants, closure of the wound, and placement of the sterile bandage. I attest to the content of the Intraoperative Record and any orders documented therein. Any exceptions are noted below.
--- NOTE | 2024-12-20 10:01 | XRay Report ---
XR hip 1V RT w pelvis HISTORY: 59 years-old Female IN PACU - Post Surgical right hip arthroplasty COMPARISON: 09/19/2024 TECHNIQUE: AP view of the pelvis with crosstable lateral view of the right hip FINDINGS: Moderate osteoarthritis of the left hip. Right hip arthroplasty demonstrates satisfactory alignment. Overlying skin del are present along with expected postoperative soft tissue swelling with deep t issue air. No unexpected opaque foreign bodies. IMPRESSION: Satisfactory alignment of the right hip arthroplasty. ACT 112: Negative or not required by law. The above report was generated using voice recognition software. It may contain grammatical, syntax o r spelling errors. Electronically signed by: Jacob Shrestha M.D. 12/20/2024 9:59 AM
--- NOTE | 2024-12-20 11:11 | Anesthesiology Progress Note ---
Date of Service December 20, 2024 Anesthesia Post Procedure Vital Signs Vital Signs: Temp Pulse Pulse Resp BP Pulse Ox O2 Del Method 12/20/24 11:00 77 16 135/78 100 Nasal Cannula 12/20/24 10:45 88 16 159/70 H 100 Nasal Cannula 12/20/24 10:30 77 16 126/67 100 Nasal Cannula 12/20/24 10:15 81 16 126/67 100 Nasal Cannula 12/20/24 10:05 82 15 123/68 100 Nasal Cannula 12/20/24 09:55 36.4 C L 82 15 156/84 H 100 Nasal Cannula 12/20/24 09:45 93 H 21 118/86 96 Nasal Cannula 12/20/24 09:35 82 14 143/78 H 100 Oxymask 12/20/24 09:25 84 13 145/88 H 100 Oxymask 12/20/24 09:15 91 H 24 177/97 H 100 Oxymask 12/20/24 09:07 36 C L 99 H 19 126/91 100 Oxymask 12/20/24 05:35 Room Air 12/20/24 05:35 37 C 82 20 170/88 H 98 Room Air O2 Flow Rate 12/20/24 11:00 2 12/20/24 10:45 2 12/20/24 10:30 2 12/20/24 10:15 2 12/20/24 10:05 2 12/20/24 09:55 4 12/20/24 09:45 4 12/20/24 09:35 8 12/20/24 09:25 8 12/20/24 09:15 8 12/20/24 09:07 8 12/20/24 05:35 12/20/24 05:35 Pain Intensity Right Hip: Pain Intensity: 10 Transfer of Care Handoff Completed per policy Notes Mental Status: alert / awake / arousable Patient Amnestic to Procedure: Yes Nausea / Vomiting: adequately controlled Pain: adequately controlled Airway Patency, RR, SpO2: stable & adequate BP & HR: stable & adequate Hydration State: stable & adequate Neuraxial Anesthesia: was administered and sensory block is resolving Anesthetic Complications: no major complications apparent and Pt Satisfied with anesthetic care
[2024-12-20] MEDS ORDERED: ALBUTEROL HFA 8 GM INHALER INH PRN (12:19)
[2024-12-20] MEDS ORDERED: bisacodyL 10 MG SUPP PR PRN (12:19)
[2024-12-20] MEDS ORDERED: MAGNESIUM HYDROXIDE SUSP 30 ML UDC PO PRN (12:19)
[2024-12-20] MEDS ORDERED: NALOXONE HCL 0.4 MG/1 ML VIAL/CARP IV PRN (12:19)
[2024-12-20] MEDS ORDERED: diphenhydrAMINE Capsule 25 MG CAP PO PRN (12:19)
[2024-12-20] MEDS ORDERED: METOCLOPRAMIDE HCL INJ 5 MG/ML 2 ML VIAL IV PRN (12:19)
[2024-12-20] MEDS ORDERED: ALUMINUM/MAGNESIUM SUSP 30 ML UDC PO PRN (12:19)
[2024-12-20] MEDS ORDERED: ALBUTEROL 0.083% NEBU SOLN 3 ML VIAL INH PRN (12:33)
[2024-12-20] MEDS: KETOROLAC 30 MG/ML VIAL IV SCH (12:39)
[2024-12-20] MEDS: KETOROLAC 30 MG/ML VIAL ONE (13:19)
[2024-12-20] MEDS: HYDROmorphone INJ 0.5 MG/0.5 ML SYR IV PRN (13:24)
[2024-12-20] MEDS ORDERED: ACETAMINOPHEN 500 MG TAB PO SCH (14:00)
[2024-12-20] MEDS: ceFAZolin 2000MG 2,000 MG/15 ML SYR IV SCH (15:22)
[2024-12-20] MEDS: TRANEXAMIC ACID / 0.7% NACL 1,000 MG/100 ML BAG IV SCH (15:22)
[2024-12-20] MEDS: traMADol HCL 50 MG TABLET PO PRN (16:19)
[2024-12-20] MEDS: ASCORBIC ACID 500 MG TAB PO SCH (16:20)
[2024-12-20] MEDS: DOCUSATE SODIUM 100 MG CAP PO SCH (20:27)
[2024-12-20] MEDS: SENNA 8.6 MG TAB PO SCH (20:27)
[2024-12-20] MEDS: ASPIRIN 81 MG ECTAB PO SCH (20:27)
[2024-12-20] MEDS: buPROPion SR 100 MG TABCR PO SCH (20:28)
[2024-12-20] MEDS ORDERED: SENNA 8.6 MG TAB PO SCH (21:00)
[2024-12-21] MEDS: LEVOTHYROXINE SODIUM 75 MCG TABLET PO SCH (06:18)
[2024-12-21 06:28] LABS: Basophils # (auto) 0.03 K/uL (0.00-0.20); Basophils % (auto) 0.4 %; Eosinophils # (auto) 0.09 K/uL (0.00-0.50); Eosinophils % (auto) 1.1 %; Hematocrit (blood only) 33.6 % (37.0-47.0); Hemoglobin 10.7 g/dl (12.0-16.0); Immature Granulocytes # (auto) 0.03 K/uL (0.01-0.20); Immature Granulocytes % (auto) 0.4 %; Lymphocytes # (auto) 1.18 K/uL (1.20-3.40); Lymphocytes % (auto) 14.3 %; Mean Corpuscular Hemoglobin 28.4 pg (25.0-34.0); Mean Corpuscular Hgb Conc 31.8 g/dL (32.0-36.0); Mean Corpuscular Volume 89.1 fL (80.0-100.0); Monocytes # (auto) 0.76 K/uL (0.11-0.59); Monocytes % (auto) 9.2 %; Neutrophils # (auto) 6.19 K/uL (1.40-6.50); Neutrophils % (auto) 74.6 %; Platelet Count 177 K/uL (130-400); RDW Coefficient of Variation 13.9 % (11.5-14.5); RDW Standard Deviation 45.3 fL (36.4-46.3); Red Blood Count 3.77 M/uL (4.20-5.40); White Blood Count 8.28 K/ul (4.8-10.8)
[2024-12-21 06:42] LABS: BUN Creatinine Ratio 25.7 (10-20); Calcium 8.5 mg/dl (8.6-10.3); Creatinine Clr Calc Pharmacy 82.1 ml/min; Potassium 4.1 mmol/L (3.5-5.1)
[2024-12-21] MEDS: PANTOprazole 40 MG TAB PO SCH (08:35)
[2024-12-21] MEDS: DULoxetine HCL 60 MG CAP PO SCH (08:35)
[2024-12-21] MEDS: dexAMETHasone 10 MG in SYRINGE 0 ML IV SCH (08:35)
[2024-12-21] MEDS: hydroCHLOROthiazide 25 MG TAB PO SCH (08:35)
[2024-12-21] MEDS: CHOLECALCIFEROL 25 MCG (1000 UNITS) TAB PO SCH (08:35)
[2024-12-21] MEDS: MULTIVITAMIN TAB PO SCH (08:35)
[2024-12-21] MEDS ORDERED: MULTIVITAMIN TAB PO SCH (09:00)
--- NOTE | 2024-12-21 09:46 | Orthopedic Progress Note ---
Date of Service December 21, 2024 Assessment & Plan (1) Status post total replacement of right hip: Assessment: Status post right total hip arthroplasty. Plan: Overall, she is doing quite well today with good pain control of the right hip. She will work with physical therapy later this morning to work on ambulat ion and range of motion exercises. She did state to me that she does not feel comfortable leaving today and would like to stay 1 more night to work with physical therapy again in the morning. I do feel that this is a reasonable request because of her home life situation. She will continue her aspirin for DVT prophylaxis. Dressings should remain in place today and can be changed tomorrow prior to discharge. Anticipated discharge for tomorrow morning after physical therapy. Subjective . Madina was seen and evaluated this morning resting comfortably in no apparent distress. She notes that her pain is well-controlled to the right hip. She has been able to get out of bed without any significant issues. She has yet to work physical therapy today. She denies any concerns with her surgical incision site. She denies any active bleeding, discharge, or signs of infection. Her wound VAC is maintaining negative pressure. She denies any other concerns today. Review of Systems All systems reviewed & are unremarkable except as noted in HPI & below. Physical Exam . On physical examination of the right hip, wound VAC is in place maintaining negative pressure with no signs of active bleeding, discharge, or signs of infection. Leg out in full extension. Limited range of motion and strength secondary to postoperative stiffness soreness. Calf soft nontender to palpation. Negative Homans' sign. Intact plantarflexion dorsiflexion of the right ankle. +2 DP and PT pulse. Less than 2-second capillary refill. Normal sensation. Neurovascular intact. Results & Data Results & Data Laboratory Results . Diagnostic Findings . Hip/Pelvis X-Ray 12/20/24 09:10 XR hip 1V RT w pelvis HISTORY: 59 years-old Female IN PACU - Post Surgical right hip arthroplasty COMPARISON: 09/19/2024 TECHNIQUE: AP view of the pelvis with crosstable lateral view of the right hip FINDINGS: Moderate osteoarthritis of the left hip. Right hip arthroplasty demonstrates satisfactory alignment. Overlying skin del are present along with expected postoperative soft tissue swelling with deep tissue air. No unexpected opaque foreign bodies. IMPRESSION: Satisfactory alignment of the right hip arthroplasty. ACT 112: Negative or not required by law. The above report was generated using voice recognition software. It may contain grammatical, syntax or spelling errors. Electronically signed by: Jacob Shrestha M.D. 12/20/2024 9:59 AM PG Care Time/CCT Total # of Minutes Spent Total Time Spent with Patient: Total time spent is greater than 50% in coordination of care (as documented) at patient's floor/unit and/or counseling patient: Coding Level of Care Code 02562 Post Operative Follow-Up Diagnoses Status post total replacement of right hip Z96.641
[2024-12-21 19:34] VITALS: O2SAT 94
--- NOTE | 2024-12-22 07:13 | Orthopedic Progress Note ---
Date of Service December 22, 2024 Assessment & Plan (1) Status post total replacement of right hip: Seen and examined by Dr. Leone Continue PT/OT, wbat, hip precautions dvt prophylaxis: teds, scd's, aspirin Continue Prevena vac dressing until POD 7 d/c planning: home with home health today Subjective .59 year old patient POD 2 from right bobby. Doing well. Pain controlled. No new complaints. Review of Systems All systems reviewed & are unremarkable except as noted in HPI & below. Physical Exam .alert and oriented. NAD. VSS right leg: Prevena vac intact, appears to be functioning appropriately. Leg well aligned. Able to dorsiflex and plantarflex. NVI Results & Data Results & Data Laboratory Results . Diagnostic Findings . PG Care Time/CCT Total # of Minutes Spent Total Time Spent with Patient: Total time spent is greater than 50% in coordination of care (as documented) at patient's floor/unit and/or counseling patient: Coding Level of Care Code 34439 Post Operative Follow-Up Diagnoses Status post total replacement of right hip Z96.641
[2024-12-22 07:44] VITALS: BP 140/83; PULSE 83; RESP 19; TEMP 97.7
--- NOTE | 2024-12-27 15:32 | Discharge Summary ---
Date of Service December 27, 2024 Admission HPI (Per Admitting) . The patient is a 59-year-old female referred by Dr. Diane for surgical treatment of right hip. She has a 3-year history of increasing right hip pain discomfort described to gotten worse over time. She does also have a history of back problems managed by the pain clinic. Over the past 3 years she developed increased pain discomfort in the right hip. She has had to use a walker to get around. She is pretty miserable in pain. She did attempt weight loss and was successful initially but become less successful as her mobility decreased. Pains mostly groin pain thigh pain and lateral hip pain. She did have an intra- articular injection which helped temporarily. She is ready to have her hip fixed. Admission Exam (Per Admitting) . Physical examination was a pleasant somewhat emotional teary-eyed female. She looks to be pretty uncomfortable in pain. Examination of the right hip reveal patient walks with use of a walker. Large soft tissue envelope. Leg lengths appear fairly equal although it is a little difficult to assess due to flexion contracture. She is got about a 10 degree external rotation contracture. She has marked pain with any type of hip motion. She is neurologically intact. Principal Diagnosis Same as "Discharge Diagnosis" noted below under Discharge Instructions. Discharge Exam .alert and oriented. NAD. VSS right leg: Prevena vac intact, appears to be functioning appropriately. Leg well aligned. Able to dorsiflex and plantarflex. NVI Discharge Data Procedures Performed Operation Date: 12/20/24 07:00 Actual Procedures p Right Total Hip Arthroplasty, Uncemented(Right) - Messi Leone MD Hospital Course (1) Status post total replacement of right hip: This is a 59 year old patient admitted on 12/20/24 and underwent total hip arthroplasty. She tolerated the procedure well and there were no complications. Transferred to the PACU post op and later to the orthopedic floor for further care. She was given ancef for antibiotic prophylaxis. She was also given MARRY stockings, SCDs, and aspirin for DVT prophylaxis. Hemoglobin, hematocrit, and vital signs were monitored during her hospital stay and remained stable. Did not require any blood transfusions. There were no complications during her hospital stay. By post op day #2 the patient was tolerating a regular diet, pain was reasonably controlled with oral pain medicine, and she was participating in physical therapy. On post op day #2 the patient was discharged home and set up with home health care. She was given printed discharge instructions including prescriptions for extra strength tylenol, aspirin, zofran, senokot, and tramadol. Continue hip precautions. Continue physical therapy, weight bearing as tolerated. Continue MARRY stockings. Follow up approximately 2 weeks post op or sooner if there are problems or concerns. Discharge Plan Discharge Items Patient Disposition: Home - Home Health Services Reason For Visit: Arthritis Right Hip Discharge Diagnosis: Right Hip Replacement Activity: Resume your previous activity Activity Comment: Follow/Obey hip precautions at all times. Weightbearing: Full weightbearing Weightbearing Comment: Weightbear as tolerated obeying hip precautions at all times. Non-emergency contact: Surgeon Call non-emergency contact if: you have any medication questions Follow-up/Referrals: Judith Becker PA-C [Primary Care Provider] - Diet: Regular Addtl Attending Provider Instructions: ACTIVITY RECOMMENDATIONS: Diet: * You may resume previous diet. Physical Therapy: * Aggressive physical therapy is not usually needed. You will learn to take c are of yourself safely and walk. * Follow the "Hip Precautions Instructions." * In some cases, the oncology social work at the hospital will arrange to have a therapist come to your house for the first couple of weeks to help you learn these skills. * You need to practice on your own or with the help of a family member as needed. * When you learn these skills, most of the therapy can be done on your own. Home Exercise: * You were shown a series of exercises in the hospital. Do these exercises three to four times each day including the exercises you were shown in physical therapy. Walking: * Get up and walk several times each day. For the first four weeks, try not to stand or walk for more than one hour at a time. If you do stand or walk for more than one hour, you will not hurt anything, but your leg will likely swell. * As you feel comfortable, you may change from the walker or crutches to a cane and then to independent walking. MEDICATIONS: New Medicine: * You will likely be taking one or more of these medicines: 1. Tramadol - Take, as directed, when you need it, every six hours to control your pain. 2. Aspirin - Thins your blood to lessen the chance of forming a blood clot. * The most common side effects of pain medicine and iron are nausea and constipation. If nausea or constipation is too much of a problem or if you have any questions about your new medicines or doses, call [facility] at . We will try to help you manage these issues. "VERY IMPORTANT TO READ AND REVIEW" Pain: * The immediate post-operative period after hip replacement surgery is often quite painful. * You are given a prescription for pain medicine. You should take it, as directed, when you need it, especially before physical therapy and before going to bed. Pain that interferes with sleep is very common and can last several months. * You will likely need pain medicine for the first two to four weeks. It will not stop all of the pain. The pain will lessen and as you feel better, you may change to milder pain medicine such as Tylenol. * The most common side effects of pain medicine are nausea and constipation, so don't take more than you need. SPECIAL CARE INSTRUCTIONS: TEDs/Elastic Stockings: * The white elastic stockings help limit swelling and prevent blood clots from forming in your legs. The more you wear them, the more they work. * Wear them for six weeks. Incision Site Care: * Remove dressing postoperative day 7 and then shower. Keep direct shower pressure off the incision site. * After showering, cover del with dry gauze and change daily or more frequently if the dressing is getting saturated with drainage. * May completely stop using bandage if wound is dry and no drainage * Guy are removed between 2 and 3 weeks post-op. If your follow-up appointment is made before 2 weeks, please have your appointment re- scheduled. It is too early to remove the del. Prevention of Infection: * Take antibiotics one hour before any dental cleaning, dental work, urological procedure, gastrointestinal procedure or any invasive surgery in order to prevent your new joint from getting infected. * You may get the antibiotics from the doctor performing the procedure or you may call our office at before and we will call in a prescription to the pharmacy of your choice. Things to Watch For: * Drainage from the incision site that occurs more than one week after your surgery. * Severely increased leg pain or swelling. * Increased redness at the incision site. * Fever above 102 degrees Fahrenheit. * Unusual chest pain or shortness of breath. * Unusual pain or burning with urination. Call [facility] at with any of the above problems or if you have any questions about your medicines or recovery. FOLLOW UP VISIT: Make an appointment to see your doctor for approximately two weeks after surgery for a progress check and staple removal by calling the office at . Pending Studies at Discharge: No Stand-Alone Forms: My [facility] Medications and DC Order Prescriptions: Continued tramadol 50 mg tablet 50 - 100 mg PO Q6 PRN (Reason: pain) Qty: 40 0RF Rx Instructions: Take as needed for pain ondansetron 4 mg tablet,disintegrating 4 mg PO Q8 PRN (Reason: nausea) Qty: 20 1RF Rx Instructions: Take as needed for nausea sennosides [Senokot] 8.6 mg tablet 8.6 mg PO BID 14 Days Qty: 28 0RF Rx Instructions: Take two times a day to prevent/treat constipation acetaminophen [Tylenol Extra Strength] 500 mg tablet 1,000 mg PO TID 30 Days Qty: 180 0RF Rx Instructions: Take 3 times per day to lessen pain. aspirin [Shamika Low Dose Aspirin] 81 mg tablet,delayed release (DR/EC) 81 mg PO BID 45 Days Qty: 90 0RF Rx Instructions: Take to prevent blood clots. multivitamin [Multiple Vitamins] Tablet 1 tab PO QAM albuterol sulfate 1.25 mg/3 mL Solution For Nebulization 1.25 mg INHALATION QID PRN (Reason: Shortness Of Breath Or Wheezing) hydrochlorothiazide 25 mg Tablet 25 mg PO QAM albuterol sulfate 90 mcg/actuation Hfa Aerosol Inhaler 2 - 4 puff INHALATION Q6H PRN (Reason: Shortness Of Breath Or Wheezing) cholecalciferol (vitamin D3) [Vitamin D3] 1,000 unit Capsule 1,000 unit PO QAM bupropion HCl [Wellbutrin SR] 200 mg Tablet Sustained-Release 12 Hr 200 mg PO BID Prilosec 10 mg Susp,Delayed Release For Recon 40 mg PO QAM levothyroxine 75 mcg Capsule 75 mcg PO QAM duloxetine [Cymbalta] 60 mg Capsule,Delayed Release(Dr/Ec) 60 mg PO QAM Discontinued oxycodone 5 mg tablet 5 mg PO Q8H PRN (Reason: pain) Qty: 30 0RF oxycodone 5 mg tablet 5 mg PO Q8H PRN (Reason: pain) Qty: 30 0RF oxycodone 5 mg tablet 10 mg PO Q6 PRN (Reason: pain) Qty: 60 0RF oxycodone 5 mg tablet 10 mg PO Q8H PRN (Reason: pain) Qty: 30 0RF naproxen sodium [Aleve] 220 mg Tablet 220 mg PO BID PRN (Reason: Pain) Admission Data Admit Date/Time: 12/20/24 09:10 Attending Provider: Messi Leone Admit Provider: Messi Leone Primary Care Provider: Judith Becker Other Providers: [facility],Home Healthcare Other Interventions: Discharge Summary Assessment (RN) Last Done: 12/22/24 11:34
== END 2024-12-22 17:36 | disposition home health service (06) ==
LOC: PACUINP 05:23 → ASU 05:23 → 3E 13:12